=== PATIENT | male | born 1940 | race Caucasian/White ===

== ENCOUNTER → 2016-03-09 | Outpatient (CLI) | payer MEDICARE, OTHER ==
[~2016-03-09] MED LIST: AMLODIPINE10 MG PO; CALCIUM + D 6001 TAB PO; CALCIUM 600 MG-1 TAB PO; CARBAMAZEPINE200 M3 PO; CARBATROL PO; CELLCEPT 250MG250 MG PO; DURAGESIC25 MCG/PAT TD; EPITOL200 MG PO; FINASTERIDE5 MG PO; FLOMAX 0.40.4 MG/CAP PO; FLOMAX0.4 MG PO; FUROSEMIDE40 MG PO; GABAPENTIN300 MG PO; GABAPENTIN600 MG PO; LASIX40 M1; LEVEMIR FLEXPEN SQ; LEVEMIR100 U/M1 SQ; LEVEMIR100 U/ML SC; LEXAPRO 10MG10 MG PO; LIDOCAINE 4% TOP; LIDODERM 5% PATC1 EA TP; LIORESAL 1010 MG/TAB PO; LOPRESSOR 225 MG/TAB PO; LOPURIN300 MG PO; METOLAZONE2.5 MG PO; MUCINEX 60600 MG/TA1 PO; MYCOPHENOLATE250 MG PO; NORCO 325 MG-7.1 TA1 PO; NORVASC 10MG10 MG PO; NOVOLOG 100U100 U/M1 SC; NOVOLOG FLEX100 U/ML SC; PERCOCET 325 MG1 TA2 PO; PHENERGAN 25 TA25 MG PO; PROAIR RESPICL90 MCG INH; PROTONIX 40MG T40 MG PO; PROTONIX40 MG/Pack PO; RAPAMUNE0.5 MG PO; RAPAMUNE1 MG PO; RAPAMUNE1 MG/ML SC; TEGRETOL200 M1 PO; VITAMIN D1000 IU PO; VITAMIN D32000 UNI1 PO; XYLOCAINE NAS; ZYLOPRIM 300MG300 MG PO; ZYRTEC ALLERGY10 MG PO
== END ==
LOC: LAB 10:20
DX: Z94.4 Liver transplant status (principal)

== ENCOUNTER → 2016-04-10 | Outpatient (CLI) | payer MEDICARE, OTHER | LOC: LAB 09:09 | DX: Z94.4 Liver transplant status (principal); N18.3 Chronic kidney disease, stage 3 (moderate) ==

== ENCOUNTER → 2016-04-24 | Outpatient (CLI) | payer MEDICARE, OTHER | LOC: RAD 09:51 | DX: N18.9 Chronic kidney disease, unspecified (principal); K76.9 Liver disease, unspecified; Z94.4 Liver transplant status ==

== ENCOUNTER → 2016-05-29 | Outpatient (CLI) | payer MEDICARE, OTHER | LOC: LAB 08:59 | DX: Z94.4 Liver transplant status (principal) ==

== ENCOUNTER → 2016-06-19 | Outpatient (CLI) | payer MEDICARE, OTHER ==
[2014-12-15 10:40] VITALS: BP 151/89
== END ==
LOC: LAB 13:03
DX: R31.0 Gross hematuria (principal)

== ENCOUNTER → 2016-06-26 | Outpatient (CLI) | payer MEDICARE, OTHER ==
[2014-12-15 10:40] VITALS: BP 151/89
== END ==
LOC: RAD 08:57
DX: R50.81 Fever presenting with conditions classified elsewhere (principal); R06.02 Shortness of breath

== ENCOUNTER → 2016-08-09 | Outpatient (CLI) | payer MEDICARE, OTHER ==
[2014-12-15 10:40] VITALS: BP 151/89
== END ==
LOC: LAB 09:15
DX: E11.9 Type 2 diabetes mellitus without complications (principal); N18.3 Chronic kidney disease, stage 3 (moderate); Z94.4 Liver transplant status; R80.9 Proteinuria, unspecified

== ENCOUNTER → 2016-09-25 | Outpatient (CLI) | payer MEDICARE, OTHER ==
[2014-12-15 10:40] VITALS: BP 151/89
== END ==
LOC: LAB 08:58
DX: Z94.4 Liver transplant status (principal); E11.9 Type 2 diabetes mellitus without complications; Z79.4 Long term (current) use of insulin

== ENCOUNTER → 2016-11-21 | Outpatient (CLI) | payer MEDICARE, OTHER ==
[2014-12-15 10:40] VITALS: BP 151/89
== END ==
LOC: LAB 08:19
DX: Z94.4 Liver transplant status (principal); E11.9 Type 2 diabetes mellitus without complications; Z79.4 Long term (current) use of insulin

== ENCOUNTER → 2017-02-27 | Outpatient (CLI) | payer MEDICARE, OTHER ==
[2014-12-15 10:40] VITALS: BP 151/89
[2017-02-27 13:19] LABS: HEMATOCRIT 43.6 % (42.0-52.0); HEMOGLOBIN 13.9 g/dL (13.5-18.0); MEAN PLATELET VOLUME 9.4 fl (7.4-10.4); RED BLOOD COUNT 4.69 M/mm3 (4.20-5.60); RED CELL DISTRIBUTION WIDTH 14.6 % (11.5-14.5); WHITE BLOOD COUNT 5.8 K/mm3 (4.8-10.8)
[2017-02-27 13:21] LABS: ALBUMIN 4.1 g/dL (3.5-5.0); BUN/CREATININE RATIO 11.7 (6.0-26.0); CALCIUM 9.4 mg/dL (8.4-10.2); POTASSIUM 4.2 mmol/L (3.6-5.0); TOTAL BILIRUBIN 0.7 mg/dL (0.2-1.3); TOTAL PROTEIN 7.4 g/dL (6.3-8.2)
[2017-02-27 13:33] LABS: URINE COLOR YELLOW
[2017-02-27 13:34] LABS: URINE APPEARANCE CLEAR; URINE BILIRUBIN NEGATIVE (NEGATIVE); URINE BLOOD NEGATIVE (NEGATIVE); URINE KETONE NEGATIVE (NEGATIVE); URINE LEUKOCYTE ESTERASE NEGATIVE (NEGATIVE); URINE NITRATE NEGATIVE (NEGATIVE); URINE PROTEIN(semi-quant) TRACE mg/dL (NEGATIVE); URINE UROBILINOGEN NORMAL (NORMAL); URINE WBC 0-1 /hpf (0-3)
[2017-02-28 15:05] LABS: SIROLIMUS (RAPAMUNE) 3.6 ng/mL (3.0-18.0)
== END ==
LOC: LAB 12:39
DX: R31.0 Gross hematuria (principal); E11.9 Type 2 diabetes mellitus without complications; Z94.4 Liver transplant status; Z88.7 Allergy status to serum and vaccine; Z88.8 Allergy status to other drugs, medicaments and biological substances

== ENCOUNTER → 2017-04-09 | Outpatient (CLI) | payer MEDICARE, OTHER ==
[2014-12-15 10:40] VITALS: BP 151/89
[2017-04-09 08:38] LABS: HEMATOCRIT 45.4 % (42.0-52.0); HEMOGLOBIN 14.3 g/dL (13.5-18.0); MEAN PLATELET VOLUME 9.7 fl (7.4-10.4); RED BLOOD COUNT 4.91 M/mm3 (4.20-5.60); RED CELL DISTRIBUTION WIDTH 14.4 % (11.5-14.5); WHITE BLOOD COUNT 6.6 K/mm3 (4.8-10.8)
[2017-04-09 08:44] LABS: ALBUMIN 4.2 g/dL (3.5-5.0); BUN/CREATININE RATIO 14.2 (6.0-26.0); CALCIUM 9.6 mg/dL (8.4-10.2); POTASSIUM 4.2 mmol/L (3.6-5.0); TOTAL BILIRUBIN 0.4 mg/dL (0.2-1.3); TOTAL PROTEIN 7.4 g/dL (6.3-8.2)
[2017-04-09 09:38] LABS: DIRECT BILIRUBIN 0.3 mg/dL (0.0-0.4)
[2017-04-09 10:25] LABS: URINE APPEARANCE CLEAR; URINE BILIRUBIN NEGATIVE (NEGATIVE); URINE BLOOD NEGATIVE (NEGATIVE); URINE COLOR YELLOW; URINE GLUCOSE 50 mg/dL mg/dL (NEGATIVE); URINE KETONE NEGATIVE (NEGATIVE); URINE LEUKOCYTE ESTERASE NEGATIVE (NEGATIVE); URINE MUCUS PRESENT (NOT PRESENT); URINE NITRATE NEGATIVE (NEGATIVE); URINE PROTEIN(semi-quant) 1+ mg/dL (NEGATIVE); URINE UROBILINOGEN NORMAL (NORMAL)
[2017-04-10 13:21] LABS: TACROLIMUS (PROGRAF) <2.0 ng/mL (5.0-15.0)
== END ==
LOC: LAB 08:19
PROVIDERS: Internal Medicine
DX: R80.8 Other proteinuria (principal); E11.8 Type 2 diabetes mellitus with unspecified complications; Z94.4 Liver transplant status; Z88.7 Allergy status to serum and vaccine

== ENCOUNTER → 2017-05-16 | Outpatient (CLI) | payer MEDICARE, OTHER ==
[2014-12-15 10:40] VITALS: BP 151/89
[2017-05-16 09:25] LABS: ALBUMIN 3.8 g/dL (3.5-5.0); BUN/CREATININE RATIO 16.7 (6.0-26.0); CALCIUM 9.3 mg/dL (8.4-10.2); DIRECT BILIRUBIN 0.3 mg/dL (0.0-0.4); HEMATOCRIT 41.7 % (42.0-52.0); HEMOGLOBIN 13.4 g/dL (13.5-18.0); MEAN PLATELET VOLUME 9.3 fl (7.4-10.4); RED BLOOD COUNT 4.55 M/mm3 (4.20-5.60); RED CELL DISTRIBUTION WIDTH 14.1 % (11.5-14.5); TOTAL BILIRUBIN 0.6 mg/dL (0.2-1.3); TOTAL PROTEIN 6.8 g/dL (6.3-8.2); WHITE BLOOD COUNT 5.9 K/mm3 (4.8-10.8)
[2017-05-16 10:09] LABS: URINE APPEARANCE CLEAR; URINE BILIRUBIN NEGATIVE (NEGATIVE); URINE BLOOD NEGATIVE (NEGATIVE); URINE COLOR YELLOW; URINE GLUCOSE NEGATIVE (NEGATIVE); URINE KETONE NEGATIVE (NEGATIVE); URINE LEUKOCYTE ESTERASE NEGATIVE (NEGATIVE); URINE MUCUS PRESENT (NOT PRESENT); URINE NITRATE NEGATIVE (NEGATIVE); URINE PROTEIN(semi-quant) 2+ mg/dL (NEGATIVE); URINE UROBILINOGEN NORMAL (NORMAL)
[2017-05-17 15:33] LABS: TACROLIMUS (PROGRAF) <2.0 ng/mL (5.0-15.0)
[2017-05-17 15:34] LABS: SIROLIMUS (RAPAMUNE) 6.7 ng/mL (3.0-18.0)
== END ==
LOC: LAB 08:52
PROVIDERS: Nurse Practitioner Family
DX: R22.42 Localized swelling, mass and lump, left lower limb (principal); E11.8 Type 2 diabetes mellitus with unspecified complications; R80.8 Other proteinuria; Z88.7 Allergy status to serum and vaccine; Z88.8 Allergy status to other drugs, medicaments and biological substances; Z94.4 Liver transplant status

== ENCOUNTER → 2017-06-12 | Outpatient (CLI) | payer MEDICARE, OTHER ==
[2014-12-15 10:40] VITALS: BP 151/89
[2017-06-12 09:22] LABS: ALBUMIN 4.4 g/dL (3.5-5.0); BUN/CREATININE RATIO 14.9 (6.0-26.0); CALCIUM 9.9 mg/dL (8.4-10.2); DIRECT BILIRUBIN 0.3 mg/dL (0.0-0.4); POTASSIUM 4.1 mmol/L (3.6-5.0); TOTAL BILIRUBIN 0.7 mg/dL (0.2-1.3); TOTAL PROTEIN 8.1 g/dL (6.3-8.2)
[2017-06-12 09:37] LABS: URINE APPEARANCE CLEAR; URINE BILIRUBIN NEGATIVE (NEGATIVE); URINE BLOOD NEGATIVE (NEGATIVE); URINE COLOR YELLOW; URINE GLUCOSE 50 mg/dL mg/dL (NEGATIVE); URINE KETONE NEGATIVE (NEGATIVE); URINE LEUKOCYTE ESTERASE NEGATIVE (NEGATIVE); URINE MUCUS PRESENT (NOT PRESENT); URINE NITRATE NEGATIVE (NEGATIVE); URINE PROTEIN(semi-quant) 2+ mg/dL (NEGATIVE); URINE UROBILINOGEN NORMAL (NORMAL)
[2017-06-12 09:38] LABS: HEMATOCRIT 46.8 % (42.0-52.0); HEMOGLOBIN 14.8 g/dL (13.5-18.0); MEAN PLATELET VOLUME 9.2 fl (7.4-10.4); RED BLOOD COUNT 5.1 M/mm3 (4.20-5.60); RED CELL DISTRIBUTION WIDTH 14.2 % (11.5-14.5); WHITE BLOOD COUNT 5.6 K/mm3 (4.8-10.8)
[2017-06-12 23:53] LABS: MICROALBUMIN RANDOM 33.9 mg/dL (0.0-1.7)
[2017-06-13 13:49] LABS: SIROLIMUS (RAPAMUNE) 5.2 ng/mL (3.0-18.0); TACROLIMUS (PROGRAF) <2.0 ng/mL (5.0-15.0)
== END ==
LOC: LAB 08:50
PROVIDERS: Nurse Practitioner Family
DX: Z94.4 Liver transplant status (principal); E11.8 Type 2 diabetes mellitus with unspecified complications; R80.8 Other proteinuria; Z79.4 Long term (current) use of insulin

== ENCOUNTER → 2017-06-18 | Outpatient (CLI) | payer MEDICARE, OTHER ==
[2014-12-15 10:40] VITALS: BP 151/89
[2017-06-18 14:13] LABS: BUN/CREATININE RATIO 15.7 (6.0-26.0); CALCIUM 9.2 mg/dL (8.4-10.2); POTASSIUM 4.3 mmol/L (3.6-5.0)
== END ==
LOC: LAB 12:54
PROVIDERS: Internal Medicine
DX: N18.3 Chronic kidney disease, stage 3 (moderate) (principal)

== ENCOUNTER → 2017-07-09 | Outpatient (CLI) | payer MEDICARE, OTHER ==
[2014-12-15 10:40] VITALS: BP 151/89
[2017-07-09 09:35] LABS: HEMOGLOBIN 14.2 g/dL (13.5-18.0); MEAN PLATELET VOLUME 9.2 fl (7.4-10.4); RED BLOOD COUNT 4.93 M/mm3 (4.20-5.60); RED CELL DISTRIBUTION WIDTH 13.9 % (11.5-14.5); WHITE BLOOD COUNT 5.8 K/mm3 (4.8-10.8)
[2017-07-09 09:36] LABS: URINE APPEARANCE CLEAR; URINE BILIRUBIN NEGATIVE (NEGATIVE); URINE BLOOD NEGATIVE (NEGATIVE); URINE COLOR YELLOW; URINE GLUCOSE NEGATIVE (NEGATIVE); URINE KETONE NEGATIVE (NEGATIVE); URINE LEUKOCYTE ESTERASE NEGATIVE (NEGATIVE); URINE MUCUS PRESENT (NOT PRESENT); URINE NITRATE NEGATIVE (NEGATIVE); URINE PROTEIN(semi-quant) 2+ mg/dL (NEGATIVE); URINE UROBILINOGEN NORMAL (NORMAL)
[2017-07-09 09:50] LABS: ALBUMIN 4.3 g/dL (3.5-5.0); BUN/CREATININE RATIO 15.1 (6.0-26.0); CALCIUM 9.7 mg/dL (8.4-10.2); DIRECT BILIRUBIN 0.3 mg/dL (0.0-0.4); POTASSIUM 4.3 mmol/L (3.6-5.0); TOTAL BILIRUBIN 0.7 mg/dL (0.2-1.3); TOTAL PROTEIN 7.9 g/dL (6.3-8.2)
[2017-07-09 22:29] LABS: MICROALBUMIN RANDOM 46.8 mg/dL (0.0-1.7)
[2017-07-10 13:43] LABS: SIROLIMUS (RAPAMUNE) 4.3 ng/mL (3.0-18.0); TACROLIMUS (PROGRAF) <2.0 ng/mL (5.0-15.0)
== END ==
LOC: LAB 09:10
PROVIDERS: Nurse Practitioner Family
DX: R80.8 Other proteinuria (principal); E11.8 Type 2 diabetes mellitus with unspecified complications; R31.0 Gross hematuria; Z94.4 Liver transplant status

== ENCOUNTER → 2017-08-07 | Outpatient (CLI) | payer MEDICARE, OTHER ==
[2014-12-15 10:40] VITALS: BP 151/89
[2017-08-07 09:29] LABS: HEMATOCRIT 44.2 % (42.0-52.0); HEMOGLOBIN 14.2 g/dL (13.5-18.0); MEAN PLATELET VOLUME 9.5 fl (7.4-10.4); RED BLOOD COUNT 4.9 M/mm3 (4.20-5.60); RED CELL DISTRIBUTION WIDTH 14.9 % (11.5-14.5); WHITE BLOOD COUNT 6.6 K/mm3 (4.8-10.8)
[2017-08-07 09:42] LABS: ALBUMIN 4.2 g/dL (3.5-5.0); BUN/CREATININE RATIO 15.1 (6.0-26.0); DIRECT BILIRUBIN 0.3 mg/dL (0.0-0.4); TOTAL BILIRUBIN 0.5 mg/dL (0.2-1.3); TOTAL PROTEIN 7.8 g/dL (6.3-8.2)
[2017-08-07 10:23] LABS: URINE APPEARANCE CLEAR; URINE BILIRUBIN NEGATIVE (NEGATIVE); URINE BLOOD NEGATIVE (NEGATIVE); URINE COLOR YELLOW; URINE GLUCOSE NEGATIVE (NEGATIVE); URINE KETONE NEGATIVE (NEGATIVE); URINE LEUKOCYTE ESTERASE NEGATIVE (NEGATIVE); URINE MUCUS PRESENT (NOT PRESENT); URINE NITRATE NEGATIVE (NEGATIVE); URINE PROTEIN(semi-quant) 1+ mg/dL (NEGATIVE); URINE UROBILINOGEN NORMAL (NORMAL)
[2017-08-08 13:05] LABS: TACROLIMUS (PROGRAF) <2.0 ng/mL (5.0-15.0)
[2017-08-08 14:00] LABS: SIROLIMUS (RAPAMUNE) 5.1 ng/mL (3.0-18.0)
[2017-08-09 02:43] LABS: MICROALBUMIN RANDOM 23.4 mg/dL (0.0-1.7)
== END ==
LOC: LAB 09:06
PROVIDERS: Internal Medicine
DX: E11.8 Type 2 diabetes mellitus with unspecified complications (principal); R80.8 Other proteinuria; Z94.4 Liver transplant status

== ENCOUNTER → 2017-10-29 | Outpatient (CLI) | payer MEDICARE, OTHER ==
[2014-12-15 10:40] VITALS: BP 151/89
[2017-10-29 09:37] LABS: HEMATOCRIT 44.8 % (42.0-52.0); HEMOGLOBIN 14.4 g/dL (13.5-18.0)
[2017-10-29 09:46] LABS: ALBUMIN 4.3 g/dL (3.5-5.0); CALCIUM 9.7 mg/dL (8.4-10.2); DIRECT BILIRUBIN 0.3 mg/dL (0.0-0.4); POTASSIUM 3.8 mmol/L (3.6-5.0); TOTAL BILIRUBIN 0.6 mg/dL (0.2-1.3); TOTAL PROTEIN 7.6 g/dL (6.3-8.2)
[2017-10-29 09:53] LABS: URINE APPEARANCE CLEAR; URINE BILIRUBIN NEGATIVE (NEGATIVE); URINE BLOOD NEGATIVE (NEGATIVE); URINE COLOR YELLOW; URINE GLUCOSE NEGATIVE (NEGATIVE); URINE KETONE NEGATIVE (NEGATIVE); URINE LEUKOCYTE ESTERASE NEGATIVE (NEGATIVE); URINE MUCUS PRESENT (NOT PRESENT); URINE NITRATE NEGATIVE (NEGATIVE); URINE PROTEIN(semi-quant) 1+ mg/dL (NEGATIVE); URINE UROBILINOGEN NORMAL (NORMAL); URINE WBC 0-1 /hpf (0-3)
[2017-10-29 23:56] LABS: MICROALBUMIN RANDOM 23.2 mg/dL (0.0-1.7)
[2017-10-30 11:02] LABS: TACROLIMUS (PROGRAF) <2.0 ng/mL (5.0-15.0)
== END ==
LOC: LAB 09:07
DX: R80.8 Other proteinuria (principal); E11.8 Type 2 diabetes mellitus with unspecified complications; Z94.4 Liver transplant status

== ENCOUNTER → 2017-12-03 | Outpatient (CLI) | payer MEDICARE, OTHER ==
[2014-12-15 10:40] VITALS: BP 151/89
[2017-12-03 09:49] LABS: ALBUMIN 4.2 g/dL (3.5-5.0); CALCIUM 9.4 mg/dL (8.4-10.2); POTASSIUM 4.1 mmol/L (3.6-5.0); TOTAL BILIRUBIN 0.7 mg/dL (0.2-1.3); TOTAL PROTEIN 7.4 g/dL (6.3-8.2)
[2017-12-03 09:57] LABS: HEMATOCRIT 43.4 % (42.0-52.0); HEMOGLOBIN 13.9 g/dL (13.5-18.0); MEAN PLATELET VOLUME 9.7 fl (7.4-10.4); RED BLOOD COUNT 4.69 M/mm3 (4.20-5.60); RED CELL DISTRIBUTION WIDTH 13.7 % (11.5-14.5); WHITE BLOOD COUNT 8.9 K/mm3 (4.8-10.8)
== END ==
LOC: LAB 09:08
PROVIDERS: Internal Medicine
DX: N18.3 Chronic kidney disease, stage 3 (moderate) (principal); R80.8 Other proteinuria; Z94.4 Liver transplant status

== ENCOUNTER → 2018-03-28 | Outpatient (CLI) | payer MEDICARE, OTHER ==
[2014-12-15 10:40] VITALS: BP 151/89
[2018-03-28 10:42] LABS: HEMATOCRIT 44.7 % (42.0-52.0); HEMOGLOBIN 14.2 g/dL (13.5-18.0); MEAN PLATELET VOLUME 9.6 fl (7.4-10.4); RED BLOOD COUNT 4.88 M/mm3 (4.20-5.60); RED CELL DISTRIBUTION WIDTH 14.4 % (11.5-14.5)
[2018-03-28 11:19] LABS: CALCIUM 9.9 mg/dL (8.4-10.2); POTASSIUM 4.5 mmol/L (3.6-5.0)
== END ==
LOC: LAB 10:11
DX: N18.3 Chronic kidney disease, stage 3 (moderate) (principal); R80.8 Other proteinuria; Z94.4 Liver transplant status

== ENCOUNTER → 2018-05-07 | Outpatient (CLI) | payer MEDICARE, OTHER ==
[2014-12-15 10:40] VITALS: BP 151/89
[2018-05-07 14:11] LABS: HEMATOCRIT 46.2 % (42.0-52.0); HEMOGLOBIN 14.5 g/dL (13.5-18.0); MEAN PLATELET VOLUME 9.9 fl (7.4-10.4); RED BLOOD COUNT 5.05 M/mm3 (4.20-5.60); RED CELL DISTRIBUTION WIDTH 14.3 % (11.5-14.5); WHITE BLOOD COUNT 7.4 K/mm3 (4.8-10.8)
[2018-05-07 14:15] LABS: POTASSIUM 4.3 mmol/L (3.6-5.0)
[2018-05-07 14:49] LABS: ALBUMIN 4.4 g/dL (3.5-5.0); TOTAL BILIRUBIN 0.6 mg/dL (0.2-1.3); TOTAL PROTEIN 7.8 g/dL (6.3-8.2)
== END ==
LOC: LAB 13:32
PROVIDERS: Physician Assistant
DX: N18.3 Chronic kidney disease, stage 3 (moderate) (principal); R80.8 Other proteinuria; Z94.4 Liver transplant status

== ENCOUNTER → 2018-06-05 | Outpatient (CLI) | payer MEDICARE, OTHER ==
[2014-12-15 10:40] VITALS: BP 151/89
[2018-06-05 11:01] LABS: HEMATOCRIT 45.5 % (42.0-52.0); HEMOGLOBIN 14.4 g/dL (13.5-18.0); MEAN PLATELET VOLUME 9.8 fl (7.4-10.4); RED BLOOD COUNT 4.94 M/mm3 (4.20-5.60); RED CELL DISTRIBUTION WIDTH 14.3 % (11.5-14.5); WHITE BLOOD COUNT 6.6 K/mm3 (4.8-10.8)
[2018-06-05 11:10] LABS: ALBUMIN 4.3 g/dL (3.5-5.0); CALCIUM 9.5 mg/dL (8.4-10.2); POTASSIUM 4.7 mmol/L (3.6-5.0); TOTAL BILIRUBIN 0.6 mg/dL (0.2-1.3); TOTAL PROTEIN 7.5 g/dL (6.3-8.2)
== END ==
LOC: LAB 10:33
DX: R80.8 Other proteinuria (principal); N18.3 Chronic kidney disease, stage 3 (moderate); Z94.4 Liver transplant status

== ENCOUNTER → 2018-07-07 | Outpatient (CLI) | payer MEDICARE, OTHER ==
[2014-12-15 10:40] VITALS: BP 151/89
[2018-07-07 07:54] LABS: HEMATOCRIT 45.3 % (42.0-52.0); HEMOGLOBIN 14.2 g/dL (13.5-18.0); MEAN PLATELET VOLUME 9.7 fl (7.4-10.4); RED BLOOD COUNT 4.88 M/mm3 (4.20-5.60); RED CELL DISTRIBUTION WIDTH 14.9 % (11.5-14.5); WHITE BLOOD COUNT 6.7 K/mm3 (4.8-10.8)
[2018-07-07 07:55] LABS: ALBUMIN 4.4 g/dL (3.5-5.0); CALCIUM 9.5 mg/dL (8.4-10.2); POTASSIUM 4.5 mmol/L (3.6-5.0); TOTAL BILIRUBIN 0.5 mg/dL (0.2-1.3); TOTAL PROTEIN 7.4 g/dL (6.3-8.2)
== END ==
LOC: LAB 07:23
PROVIDERS: Internal Medicine
DX: N18.3 Chronic kidney disease, stage 3 (moderate) (principal); Z94.4 Liver transplant status; R80.8 Other proteinuria

== ENCOUNTER → 2018-08-04 | Outpatient (CLI) | payer MEDICARE, OTHER ==
[2014-12-15 10:40] VITALS: BP 151/89
[2018-08-04 09:13] LABS: HEMATOCRIT 43.6 % (42.0-52.0); HEMOGLOBIN 13.6 g/dL (13.5-18.0); MEAN PLATELET VOLUME 9.6 fl (7.4-10.4); RED BLOOD COUNT 4.68 M/mm3 (4.20-5.60); RED CELL DISTRIBUTION WIDTH 14.8 % (11.5-14.5); WHITE BLOOD COUNT 6.9 K/mm3 (4.8-10.8)
[2018-08-04 09:28] LABS: ALBUMIN 3.9 g/dL (3.4-4.8); CALCIUM 9.8 mg/dL (8.3-10.5); POTASSIUM 4.3 mmol/L (3.5-5.1); TOTAL BILIRUBIN 0.3 mg/dL (0.2-1.2); TOTAL PROTEIN 6.9 g/dL (6.2-8.1)
== END ==
LOC: LAB 08:58
PROVIDERS: Internal Medicine
DX: N18.3 Chronic kidney disease, stage 3 (moderate) (principal); Z94.4 Liver transplant status; R80.8 Other proteinuria

== ENCOUNTER → 2018-09-01 | Outpatient (CLI) | payer MEDICARE, OTHER ==
[2014-12-15 10:40] VITALS: BP 151/89
[2018-09-01 10:11] LABS: EOS # 0.1 (0.04-0.40); EOS % 0.9 % (0.0-4.0); HEMATOCRIT 43.9 % (42.0-52.0); LYMPH# 1.9 (1.50-4.00); MEAN CELL VOLUME 92 fl (78-100); MEAN CORPUSCULAR HEMOGLOBIN 29 pg (27-31); MEAN CORPUSCULAR HGB CONC 32 g/dL (33-37); MONO # 0.5 (0.20-0.80); NEU # 3.9 (1.40-6.50); PLATELET COUNT 339 K/mm3 (130-400); RED CELL DISTRIBUTION WIDTH 14.5 % (11.5-14.5); WHITE BLOOD COUNT 6.3 K/mm3 (4.8-10.8)
[2018-09-01 10:20] LABS: ALBUMIN 4.1 g/dL (3.4-4.8); POTASSIUM 4.5 mmol/L (3.5-5.1)
[2018-09-01 10:21] LABS: CALCIUM 9.8 mg/dL (8.3-10.5)
[2018-09-01 10:23] LABS: TOTAL PROTEIN 7.4 g/dL (6.2-8.1)
[2018-09-01 10:25] LABS: TOTAL BILIRUBIN 0.4 mg/dL (0.2-1.2)
[2018-09-01 11:14] LABS: ERYTHROCYTE SEDIMENTATION RATE 49 mm/hr (0-20)
[2018-09-01 22:19] LABS: TESTOSTERONE 190 ng/dL (221-716)
== END ==
LOC: LAB 09:59
PROVIDERS: Internal Medicine
DX: Z12.5 Encounter for screening for malignant neoplasm of prostate (principal); I10 Essential (primary) hypertension; E11.9 Type 2 diabetes mellitus without complications; E78.5 Hyperlipidemia, unspecified; N52.9 Male erectile dysfunction, unspecified; R20.2 Paresthesia of skin

== ENCOUNTER 2018-09-28 15:24 | Emergency (ER) | payer MEDICARE, OTHER ==
[~2018-09-28] VITALS: Wt 123.1 kg
[2018-09-28 16:11] LABS: HEMATOCRIT 45.1 % (42.0-52.0); HEMOGLOBIN 14.1 g/dL (13.5-18.0); MEAN CELL VOLUME 93 fl (78-100); MEAN CORPUSCULAR HEMOGLOBIN 29 pg (27-31); MEAN CORPUSCULAR HGB CONC 31 g/dL (33-37); MEAN PLATELET VOLUME 10.8 fl (7.4-10.4); PLATELET COUNT 441 K/mm3 (130-400); RED BLOOD COUNT 4.85 M/mm3 (4.20-5.60); RED CELL DISTRIBUTION WIDTH 14.6 % (11.5-14.5); WHITE BLOOD COUNT 11.1 K/mm3 (4.8-10.8)
[2018-09-28 16:24] LABS: ALBUMIN 3.8 g/dL (3.4-4.8)
[2018-09-28 16:25] LABS: POTASSIUM 4.6 mmol/L (3.5-5.1)
[2018-09-28 16:26] LABS: CALCIUM 9.7 mg/dL (8.3-10.5)
[2018-09-28 16:27] LABS: TOTAL PROTEIN 7.8 g/dL (6.2-8.1)
[2018-09-28] MEDS ORDERED: LEVEMIR FLEX100 U/ML SQ (16:28)
[2018-09-28] MEDS ORDERED: PANTOPRAZOLE SO40 MG PO (16:28)
[2018-09-28 16:29] LABS: TOTAL BILIRUBIN 0.3 mg/dL (0.2-1.2)
[2018-09-28] MEDS ORDERED: LEVEMIR100 U/M1 SQ (16:29)
[2018-09-28] MEDS ORDERED: CALCIUM 600 MG-1 TAB PO (16:29)
[2018-09-28] MEDS ORDERED: NOVOLOG 100U100 U/ML SQ (16:29)
[2018-09-28 16:30] LABS: LYMPHOCYTE 13 % (20-51); MONOCYTE 1 % (3-10); NEUTROPHILS 86 % (42-75)
[2018-09-28] MEDS ORDERED: PREDNISONE20 M1 PO (16:43)
[2018-09-28 16:45] LABS: D-DIMER 0.77 mg/L FEU (0.15-0.50)
[2018-09-28 16:46] LABS: TROPONIN-I 10.75 ng/mL (<0.030)
[2018-09-28 17:40] LABS: PARTIAL THROMBOPLASTIN TIME 22.7 SECONDS (21.0-32.0)
[2018-09-28 19:01] VITALS: BP 104/57
== END 2018-09-28 19:23 | disposition short-term general hospital (02) ==
LOC: ED 15:24
PROVIDERS: Family Medicine
DX: I50.9 Heart failure, unspecified (principal); I21.4 Non-ST elevation (NSTEMI) myocardial infarction; E11.22 Type 2 diabetes mellitus with diabetic chronic kidney disease; N18.9 Chronic kidney disease, unspecified; Z94.0 Kidney transplant status; Z90.49 Acquired absence of other specified parts of digestive tract; Z79.4 Long term (current) use of insulin
CPT/HCPCS: J1644; J1940

== ENCOUNTER → 2018-10-13 | Outpatient (CLI) | payer MEDICARE, OTHER ==
[2018-09-28 19:01] VITALS: BP 104/57
[~2018-10-13] MED LIST changes: +LEVEMIR FLEX100 U/ML SQ; +NOVOLOG 100U100 U/ML SQ; +PANTOPRAZOLE SO40 MG PO; +PREDNISONE20 M1 PO
[2018-10-13 09:47] LABS: HEMATOCRIT 40.9 % (42.0-52.0); HEMOGLOBIN 12.5 g/dL (13.5-18.0); MEAN PLATELET VOLUME 9.7 fl (7.4-10.4); RED BLOOD COUNT 4.4 M/mm3 (4.20-5.60); RED CELL DISTRIBUTION WIDTH 14.2 % (11.5-14.5); WHITE BLOOD COUNT 6.9 K/mm3 (4.8-10.8)
[2018-10-13 09:56] LABS: ALBUMIN 3.6 g/dL (3.4-4.8)
[2018-10-13 09:57] LABS: POTASSIUM 4.5 mmol/L (3.5-5.1)
[2018-10-13 09:58] LABS: CALCIUM 9.6 mg/dL (8.3-10.5)
[2018-10-13 09:59] LABS: TOTAL PROTEIN 7.9 g/dL (6.2-8.1)
[2018-10-13 10:01] LABS: TOTAL BILIRUBIN 0.5 mg/dL (0.2-1.2)
== END ==
LOC: LAB 09:32
PROVIDERS: Internal Medicine Nephrology
DX: Z94.4 Liver transplant status (principal)

== ENCOUNTER 2018-10-23 18:22 | Emergency (ER) | payer MEDICARE, OTHER ==
[~2018-10-23] VITALS: Wt 118.1 kg
[2018-10-23] MEDS ORDERED: LEXAPRO 10MG10 MG PO (18:37)
[2018-10-23] MEDS ORDERED: FUROSEMIDE40 MG (18:38)
[2018-10-23] MEDS ORDERED: ROSUVASTATIN CA40 MG PO (18:41)
[2018-10-23] MEDS ORDERED: METOPROLOL SUCC50 M1 PO (18:42)
[2018-10-23] MEDS ORDERED: ASPIR LOW81 MG PO (18:42)
[2018-10-23] MEDS ORDERED: CLOPIDOGREL75 M2 PO (18:42)
[2018-10-23] MEDS ORDERED: ISOSORBIDE30 MG PO (18:42)
[2018-10-23 18:44] LABS: EOS # 0.2 (0.04-0.40); EOS % 2.3 % (0.0-4.0); HEMATOCRIT 41.4 % (42.0-52.0); HEMOGLOBIN 12.8 g/dL (13.5-18.0); MEAN CELL VOLUME 93 fl (78-100); MEAN CORPUSCULAR HEMOGLOBIN 29 pg (27-31); MEAN CORPUSCULAR HGB CONC 31 g/dL (33-37); MEAN PLATELET VOLUME 9.2 fl (7.4-10.4); MONO # 0.5 (0.20-0.80); NEU # 4.7 (1.40-6.50); RED BLOOD COUNT 4.47 M/mm3 (4.20-5.60); RED CELL DISTRIBUTION WIDTH 14.1 % (11.5-14.5); WHITE BLOOD COUNT 6.4 K/mm3 (4.8-10.8)
[2018-10-23 18:46] LABS: PLATELET COUNT 518 K/mm3 (130-400)
[2018-10-23 18:57] LABS: POTASSIUM 4.5 mmol/L (3.5-5.1)
[2018-10-23 18:58] LABS: CALCIUM 9.8 mg/dL (8.3-10.5)
[2018-10-23 18:59] LABS: TOTAL PROTEIN 7.9 g/dL (6.2-8.1)
[2018-10-23 19:01] LABS: TOTAL BILIRUBIN 0.4 mg/dL (0.2-1.2)
[2018-10-23 22:41] LABS: URINE APPEARANCE HAZY; URINE BILIRUBIN NEGATIVE (NEGATIVE); URINE BLOOD NEGATIVE (NEGATIVE); URINE COLOR YELLOW; URINE GLUCOSE NEGATIVE (NEGATIVE); URINE KETONE NEGATIVE (NEGATIVE); URINE LEUKOCYTE ESTERASE NEGATIVE (NEGATIVE); URINE NITRATE NEGATIVE (NEGATIVE); URINE PROTEIN(semi-quant) 2+ mg/dL (NEGATIVE); URINE UROBILINOGEN NORMAL (NORMAL); URINE WBC 0-1 /hpf (0-3)
[2018-10-23 22:42] LABS: URINE MUCUS PRESENT (NOT PRESENT)
[2018-10-23 23:20] VITALS: BP 129/70
== END 2018-10-23 23:20 | disposition home or self-care (01) ==
LOC: ED 18:22
PROVIDERS: Nurse Practitioner Family
DX: E11.649 Type 2 diabetes mellitus with hypoglycemia without coma (principal); E11.42 Type 2 diabetes mellitus with diabetic polyneuropathy; I25.10 Atherosclerotic heart disease of native coronary artery without angina pectoris; I10 Essential (primary) hypertension; I21.9 Acute myocardial infarction, unspecified; G47.33 Obstructive sleep apnea (adult) (pediatric); G50.0 Trigeminal neuralgia; Z79.4 Long term (current) use of insulin; Z79.82 Long term (current) use of aspirin; Z87.891 Personal history of nicotine dependence; Z94.4 Liver transplant status; Z95.5 Presence of coronary angioplasty implant and graft

== ENCOUNTER → 2018-11-20 | Outpatient (CLI) | payer MEDICARE, OTHER ==
[2018-10-23 23:20] VITALS: BP 129/70
[~2018-11-20] MED LIST changes: +ASPIR LOW81 MG PO; +CLOPIDOGREL75 M2 PO; +FUROSEMIDE40 MG; +ISOSORBIDE30 MG PO; +METOPROLOL SUCC50 M1 PO; +ROSUVASTATIN CA40 MG PO
[2018-11-20 13:37] LABS: HEMOGLOBIN 12.2 g/dL (13.5-18.0); MEAN PLATELET VOLUME 9.9 fl (7.4-10.4); RED BLOOD COUNT 4.28 M/mm3 (4.20-5.60); RED CELL DISTRIBUTION WIDTH 15.2 % (11.5-14.5); WHITE BLOOD COUNT 6.9 K/mm3 (4.8-10.8)
[2018-11-20 14:04] LABS: ALBUMIN 3.9 g/dL (3.4-4.8)
[2018-11-20 14:05] LABS: POTASSIUM 4.2 mmol/L (3.5-5.1)
[2018-11-20 14:06] LABS: CALCIUM 9.3 mg/dL (8.3-10.5)
[2018-11-20 14:07] LABS: TOTAL PROTEIN 6.8 g/dL (6.2-8.1)
[2018-11-20 14:09] LABS: TOTAL BILIRUBIN 0.8 mg/dL (0.2-1.2)
== END ==
LOC: LAB 13:25
PROVIDERS: Internal Medicine Nephrology
DX: E11.22 Type 2 diabetes mellitus with diabetic chronic kidney disease (principal); N18.3 Chronic kidney disease, stage 3 (moderate); N52.9 Male erectile dysfunction, unspecified; R80.8 Other proteinuria; R20.2 Paresthesia of skin; Z94.4 Liver transplant status

== ENCOUNTER → 2018-11-24 | Outpatient (CLI) | payer MEDICARE, OTHER ==
[2018-11-24 23:48] LABS: TESTOSTERONE 136 ng/dL (221-716)
== END ==
LOC: LAB 14:25
PROVIDERS: Internal Medicine
DX: N52.9 Male erectile dysfunction, unspecified (principal); R20.2 Paresthesia of skin

== ENCOUNTER → 2019-01-05 | Outpatient (CLI) | payer MEDICARE, OTHER ==
[2019-01-05 14:17] LABS: HEMOGLOBIN 12.9 g/dL (13.5-18.0); MEAN PLATELET VOLUME 10.4 fl (7.4-10.4); RED BLOOD COUNT 4.44 M/mm3 (4.20-5.60); RED CELL DISTRIBUTION WIDTH 15.6 % (11.5-14.5); WHITE BLOOD COUNT 6.4 K/mm3 (4.8-10.8)
[2019-01-05 14:23] LABS: ALBUMIN 4.2 g/dL (3.4-4.8)
[2019-01-05 14:24] LABS: POTASSIUM 5.5 mmol/L (3.5-5.1)
[2019-01-05 14:25] LABS: CALCIUM 9.6 mg/dL (8.3-10.5)
[2019-01-05 14:26] LABS: TOTAL PROTEIN 7.1 g/dL (6.2-8.1)
[2019-01-05 14:28] LABS: TOTAL BILIRUBIN 0.8 mg/dL (0.2-1.2)
== END ==
LOC: LAB 13:58
PROVIDERS: Internal Medicine
DX: I12.9 Hypertensive chronic kidney disease with stage 1 through stage 4 chronic kidney disease, or unspecified chronic kidney disease (principal); N18.3 Chronic kidney disease, stage 3 (moderate); Z94.4 Liver transplant status

== ENCOUNTER → 2019-01-21 | Outpatient (CLI) | payer MEDICARE, OTHER ==
[2019-01-21 14:25] LABS: HEMATOCRIT 41.1 % (42.0-52.0); HEMOGLOBIN 12.6 g/dL (13.5-18.0); MEAN PLATELET VOLUME 9.5 fl (7.4-10.4); RED BLOOD COUNT 4.35 M/mm3 (4.20-5.60); RED CELL DISTRIBUTION WIDTH 15.8 % (11.5-14.5); WHITE BLOOD COUNT 6.5 K/mm3 (4.8-10.8)
[2019-01-21 14:30] LABS: ALBUMIN 4.2 g/dL (3.4-4.8)
[2019-01-21 14:31] LABS: POTASSIUM 4.6 mmol/L (3.5-5.1)
[2019-01-21 14:32] LABS: CALCIUM 9.1 mg/dL (8.3-10.5)
[2019-01-21 14:33] LABS: TOTAL PROTEIN 7.2 g/dL (6.2-8.1)
[2019-01-21 14:35] LABS: TOTAL BILIRUBIN 0.6 mg/dL (0.2-1.2)
== END ==
LOC: LAB 14:11
PROVIDERS: Internal Medicine Nephrology
DX: I15.8 Other secondary hypertension (principal); N18.3 Chronic kidney disease, stage 3 (moderate); Z94.4 Liver transplant status

== ENCOUNTER → 2019-02-02 | Outpatient (CLI) | payer MEDICARE, OTHER ==
[2019-02-02 14:40] LABS: HEMATOCRIT 44.4 % (42.0-52.0); HEMOGLOBIN 13.9 g/dL (13.5-18.0); MEAN PLATELET VOLUME 9.5 fl (7.4-10.4); RED BLOOD COUNT 4.78 M/mm3 (4.20-5.60); RED CELL DISTRIBUTION WIDTH 14.8 % (11.5-14.5); WHITE BLOOD COUNT 6.8 K/mm3 (4.8-10.8)
[2019-02-02 15:05] LABS: ALBUMIN 4.2 g/dL (3.4-4.8)
[2019-02-02 15:06] LABS: POTASSIUM 4.8 mmol/L (3.5-5.1)
[2019-02-02 15:07] LABS: CALCIUM 9.7 mg/dL (8.3-10.5)
[2019-02-02 15:08] LABS: TOTAL PROTEIN 7.3 g/dL (6.2-8.1)
[2019-02-02 15:10] LABS: TOTAL BILIRUBIN 0.9 mg/dL (0.2-1.2)
== END ==
LOC: LAB 14:26
DX: Z48.23 Encounter for aftercare following liver transplant (principal); Z94.4 Liver transplant status

== ENCOUNTER → 2019-02-25 | Outpatient (RCR) | payer MEDICARE, OTHER | END | disposition home or self-care (01) | LOC: CARDREHAB | DX: Z48.812 Encounter for surgical aftercare following surgery on the circulatory system (principal); Z95.5 Presence of coronary angioplasty implant and graft; I25.2 Old myocardial infarction; E11.22 Type 2 diabetes mellitus with diabetic chronic kidney disease; N18.3 Chronic kidney disease, stage 3 (moderate); Z94.4 Liver transplant status; Z87.891 Personal history of nicotine dependence ==

== ENCOUNTER → 2019-03-18 | Outpatient (CLI) | payer MEDICARE, OTHER ==
[2019-03-18 13:54] LABS: HEMATOCRIT 44.5 % (42.0-52.0); HEMOGLOBIN 13.8 g/dL (13.5-18.0); MEAN PLATELET VOLUME 9.1 fl (7.4-10.4); RED BLOOD COUNT 4.9 M/mm3 (4.20-5.60); RED CELL DISTRIBUTION WIDTH 14.6 % (11.5-14.5); WHITE BLOOD COUNT 6.1 K/mm3 (4.8-10.8)
[2019-03-18 14:01] LABS: POTASSIUM 5.2 mmol/L (3.5-5.1)
[2019-03-18 14:02] LABS: CALCIUM 9.5 mg/dL (8.3-10.5)
[2019-03-18 14:04] LABS: TOTAL PROTEIN 6.9 g/dL (6.2-8.1)
[2019-03-18 14:05] LABS: TOTAL BILIRUBIN 0.5 mg/dL (0.2-1.2)
[2019-03-19 14:27] LABS: SIROLIMUS (RAPAMUNE) 4.3 ng/mL (3.0-18.0)
== END ==
LOC: LAB 13:38
PROVIDERS: Internal Medicine
DX: E11.9 Type 2 diabetes mellitus without complications (principal); E78.5 Hyperlipidemia, unspecified; N52.9 Male erectile dysfunction, unspecified; R20.2 Paresthesia of skin; Z94.4 Liver transplant status

== ENCOUNTER → 2019-04-01 | Outpatient (CLI) | payer MEDICARE, OTHER ==
[2019-04-01 10:17] LABS: HEMATOCRIT 44.9 % (42.0-52.0); HEMOGLOBIN 14.2 g/dL (13.5-18.0); MEAN PLATELET VOLUME 9.7 fl (7.4-10.4); RED BLOOD COUNT 4.94 M/mm3 (4.20-5.60); RED CELL DISTRIBUTION WIDTH 14.7 % (11.5-14.5); WHITE BLOOD COUNT 5.5 K/mm3 (4.8-10.8)
[2019-04-01 10:38] LABS: ALBUMIN 4.2 g/dL (3.4-4.8); POTASSIUM 4.4 mmol/L (3.5-5.1)
[2019-04-01 10:39] LABS: CALCIUM 9.5 mg/dL (8.3-10.5)
[2019-04-01 10:40] LABS: TOTAL PROTEIN 7.1 g/dL (6.2-8.1)
[2019-04-01 10:42] LABS: TOTAL BILIRUBIN 0.7 mg/dL (0.2-1.2)
== END ==
LOC: LAB 10:02
DX: Z94.4 Liver transplant status (principal); I15.1 Hypertension secondary to other renal disorders; N18.3 Chronic kidney disease, stage 3 (moderate)

== ENCOUNTER → 2019-04-13 | Outpatient (CLI) | payer MEDICARE, OTHER ==
[2019-04-13 10:51] LABS: HEMATOCRIT 45.7 % (42.0-52.0); HEMOGLOBIN 14.1 g/dL (13.5-18.0); MEAN PLATELET VOLUME 9.5 fl (7.4-10.4); RED BLOOD COUNT 5.06 M/mm3 (4.20-5.60); RED CELL DISTRIBUTION WIDTH 14.5 % (11.5-14.5)
[2019-04-13 10:55] LABS: ALBUMIN 4.1 g/dL (3.4-4.8)
[2019-04-13 10:57] LABS: CALCIUM 8.9 mg/dL (8.3-10.5)
[2019-04-13 10:58] LABS: TOTAL PROTEIN 7.1 g/dL (6.2-8.1)
[2019-04-13 11:00] LABS: TOTAL BILIRUBIN 0.7 mg/dL (0.2-1.2)
== END ==
LOC: LAB 10:33
PROVIDERS: Internal Medicine Nephrology
DX: Z48.23 Encounter for aftercare following liver transplant (principal); Z94.4 Liver transplant status

== ENCOUNTER → 2019-06-08 | Outpatient (CLI) | payer MEDICARE, OTHER ==
[2019-06-08 09:21] LABS: HEMATOCRIT 47.1 % (42.0-52.0); HEMOGLOBIN 14.6 g/dL (13.5-18.0); MEAN PLATELET VOLUME 9.8 fl (7.4-10.4); RED BLOOD COUNT 5.21 M/mm3 (4.20-5.60); RED CELL DISTRIBUTION WIDTH 15.4 % (11.5-14.5); WHITE BLOOD COUNT 7.8 K/mm3 (4.8-10.8)
[2019-06-08 09:26] LABS: ALBUMIN 4.1 g/dL (3.4-4.8)
[2019-06-08 09:27] LABS: POTASSIUM 4.2 mmol/L (3.5-5.1)
[2019-06-08 09:31] LABS: TOTAL BILIRUBIN 0.9 mg/dL (0.2-1.2)
== END ==
LOC: LAB 09:09
PROVIDERS: Internal Medicine
DX: Z48.23 Encounter for aftercare following liver transplant (principal); Z94.4 Liver transplant status

== ENCOUNTER → 2019-07-24 | Outpatient (CLI) | payer MEDICARE, OTHER ==
[2019-07-24 09:52] LABS: POTASSIUM 4.1 mmol/L (3.5-5.1)
[2019-07-24 09:53] LABS: CALCIUM 8.9 mg/dL (8.3-10.5)
== END ==
LOC: LAB 09:08
PROVIDERS: Internal Medicine
DX: N18.3 Chronic kidney disease, stage 3 (moderate) (principal); Z94.4 Liver transplant status

== ENCOUNTER → 2019-07-28 | Outpatient (CLI) | payer MEDICARE, OTHER | LOC: RAD 09:21 | DX: G52.9 Cranial nerve disorder, unspecified (principal); H53.2 Diplopia ==

== ENCOUNTER → 2019-08-19 | Outpatient (CLI) | payer MEDICARE, OTHER ==
[2019-08-19 10:32] LABS: ALBUMIN 4.4 g/dL (3.4-4.8); EOS # 0.1 (0.04-0.40); EOS % 2.2 % (0.0-4.0); HEMATOCRIT 49.4 % (42.0-52.0); HEMOGLOBIN 15.4 g/dL (13.5-18.0); LYMPH# 1.8 (1.50-4.00); MEAN CELL VOLUME 91 fl (78-100); MEAN CORPUSCULAR HEMOGLOBIN 28 pg (27-31); MEAN CORPUSCULAR HGB CONC 31 g/dL (33-37); MEAN PLATELET VOLUME 9.3 fl (7.4-10.4); MONO # 0.5 (0.20-0.80); NEU # 3.8 (1.40-6.50); PLATELET COUNT 344 K/mm3 (130-400); POTASSIUM 4.7 mmol/L (3.5-5.1); RED BLOOD COUNT 5.46 M/mm3 (4.20-5.60); RED CELL DISTRIBUTION WIDTH 15.1 % (11.5-14.5); WHITE BLOOD COUNT 6.4 K/mm3 (4.8-10.8)
[2019-08-19 10:34] LABS: CALCIUM 9.6 mg/dL (8.3-10.5)
[2019-08-19 10:35] LABS: TOTAL PROTEIN 7.5 g/dL (6.2-8.1)
[2019-08-19 10:37] LABS: TOTAL BILIRUBIN 0.9 mg/dL (0.2-1.2)
[2019-08-19 10:43] LABS: MAGNESIUM 2.02 mg/dL (1.60-2.60)
[2019-08-19 11:35] LABS: ERYTHROCYTE SEDIMENTATION RATE 17 mm/hr (0-20)
== END ==
LOC: LAB 09:59
PROVIDERS: Internal Medicine
DX: I10 Essential (primary) hypertension (principal); E11.9 Type 2 diabetes mellitus without complications; E78.5 Hyperlipidemia, unspecified

== ENCOUNTER → 2019-10-15 | Outpatient (CLI) | payer MEDICARE, OTHER ==
[2019-10-15 11:35] LABS: HEMATOCRIT 46.1 % (42.0-52.0); HEMOGLOBIN 14.5 g/dL (13.5-18.0); MEAN PLATELET VOLUME 9.4 fl (7.4-10.4); RED BLOOD COUNT 5.17 M/mm3 (4.20-5.60); WHITE BLOOD COUNT 4.9 K/mm3 (4.8-10.8)
[2019-10-15 11:47] LABS: ALBUMIN 3.9 g/dL (3.4-4.8)
[2019-10-15 11:49] LABS: CALCIUM 8.7 mg/dL (8.3-10.5)
[2019-10-15 11:50] LABS: TOTAL PROTEIN 6.8 g/dL (6.2-8.1)
[2019-10-15 11:52] LABS: TOTAL BILIRUBIN 0.7 mg/dL (0.2-1.2)
== END ==
LOC: LAB 11:16
PROVIDERS: Psychiatry & Neurology Neurology
DX: Z94.4 Liver transplant status (principal)

== ENCOUNTER → 2019-10-19 | Outpatient (CLI) | payer MEDICARE, OTHER | LOC: LAB 09:51 | DX: Z01.89 Encounter for other specified special examinations (principal) ==

== ENCOUNTER → 2019-12-03 | Outpatient (CLI) | payer MEDICARE, OTHER ==
[2019-12-03 13:41] LABS: ALBUMIN 4.1 g/dL (3.4-4.8)
[2019-12-03 13:42] LABS: POTASSIUM 4.5 mmol/L (3.5-5.1)
[2019-12-03 13:43] LABS: CALCIUM 9.3 mg/dL (8.3-10.5)
[2019-12-03 13:44] LABS: TOTAL PROTEIN 6.8 g/dL (6.2-8.1)
[2019-12-03 13:46] LABS: TOTAL BILIRUBIN 0.8 mg/dL (0.2-1.2)
[2019-12-03 13:47] LABS: HEMATOCRIT 46.2 % (42.0-52.0); HEMOGLOBIN 14.4 g/dL (13.5-18.0); MEAN PLATELET VOLUME 9.3 fl (7.4-10.4); RED BLOOD COUNT 5.17 M/mm3 (4.20-5.60); RED CELL DISTRIBUTION WIDTH 15.1 % (11.5-14.5); WHITE BLOOD COUNT 6.4 K/mm3 (4.8-10.8)
== END ==
LOC: LAB 13:23
DX: Z48.23 Encounter for aftercare following liver transplant (principal); Z94.4 Liver transplant status

== ENCOUNTER → 2019-12-14 | Outpatient (CLI) | payer MEDICARE, OTHER ==
[2019-12-14 11:44] LABS: POTASSIUM 4.3 mmol/L (3.5-5.1)
[2019-12-14 11:45] LABS: CALCIUM 9.7 mg/dL (8.3-10.5)
== END ==
LOC: LAB 11:21
PROVIDERS: Internal Medicine Nephrology
DX: N18.30 Chronic kidney disease, stage 3 unspecified (principal)

== ENCOUNTER → 2020-02-09 | Outpatient (CLI) | payer MEDICARE, OTHER ==
[2020-02-09 10:47] LABS: EOS # 0.1 (0.04-0.40); EOS % 1.8 % (0.0-4.0); HEMATOCRIT 49.6 % (42.0-52.0); HEMOGLOBIN 15.1 g/dL (13.5-18.0); LYMPH# 1.8 (1.50-4.00); MEAN CELL VOLUME 92 fl (78-100); MEAN CORPUSCULAR HEMOGLOBIN 28 pg (27-31); MEAN CORPUSCULAR HGB CONC 30 g/dL (33-37); MEAN PLATELET VOLUME 9.4 fl (7.4-10.4); MONO # 0.4 (0.20-0.80); NEU # 4.2 (1.40-6.50); PLATELET COUNT 318 K/mm3 (130-400); RED BLOOD COUNT 5.41 M/mm3 (4.20-5.60); RED CELL DISTRIBUTION WIDTH 15.2 % (11.5-14.5); WHITE BLOOD COUNT 6.5 K/mm3 (4.8-10.8)
[2020-02-09 10:49] LABS: ALBUMIN 4.2 g/dL (3.4-4.8); POTASSIUM 5.3 mmol/L (3.5-5.1)
[2020-02-09 10:50] LABS: CALCIUM 9.6 mg/dL (8.3-10.5)
[2020-02-09 10:52] LABS: TOTAL PROTEIN 6.5 g/dL (6.2-8.1)
[2020-02-09 10:54] LABS: TOTAL BILIRUBIN 0.8 mg/dL (0.2-1.2)
[2020-02-10 14:33] LABS: SIROLIMUS (RAPAMUNE) 6.8 ng/mL (3.0-18.0)
== END ==
LOC: LAB 10:01
PROVIDERS: Internal Medicine
DX: E11.9 Type 2 diabetes mellitus without complications (principal); I25.10 Atherosclerotic heart disease of native coronary artery without angina pectoris; Z12.5 Encounter for screening for malignant neoplasm of prostate; E53.8 Deficiency of other specified B group vitamins; K90.9 Intestinal malabsorption, unspecified; Z94.4 Liver transplant status

== ENCOUNTER → 2020-05-16 | Outpatient (CLI) | payer MEDICARE, OTHER ==
[2020-05-16 12:49] LABS: HEMATOCRIT 44.3 % (42.0-52.0); HEMOGLOBIN 13.4 g/dL (13.5-18.0); MEAN PLATELET VOLUME 9.2 fl (7.4-10.4); RED BLOOD COUNT 4.86 M/mm3 (4.20-5.60); RED CELL DISTRIBUTION WIDTH 15.5 % (11.5-14.5); WHITE BLOOD COUNT 6.1 K/mm3 (4.8-10.8)
[2020-05-16 12:59] LABS: ALBUMIN 4.2 g/dL (3.4-4.8)
[2020-05-16 13:00] LABS: CALCIUM 9.7 mg/dL (8.3-10.5)
[2020-05-16 13:01] LABS: TOTAL PROTEIN 7.1 g/dL (6.2-8.1)
[2020-05-16 13:03] LABS: TOTAL BILIRUBIN 0.7 mg/dL (0.2-1.2)
== END ==
LOC: LAB 12:26
PROVIDERS: Transplant Surgery
DX: Z94.4 Liver transplant status (principal)

== ENCOUNTER → 2020-08-02 | Outpatient (CLI) | payer MEDICARE, OTHER ==
[2020-08-02 10:20] LABS: POTASSIUM 4.5 mmol/L (3.5-5.1)
[2020-08-02 10:21] LABS: CALCIUM 9.9 mg/dL (8.3-10.5)
== END ==
LOC: LAB 09:54
PROVIDERS: Internal Medicine Nephrology
DX: I12.9 Hypertensive chronic kidney disease with stage 1 through stage 4 chronic kidney disease, or unspecified chronic kidney disease (principal); N18.30 Chronic kidney disease, stage 3 unspecified

== ENCOUNTER → 2020-08-18 | Outpatient (CLI) | payer MEDICARE, OTHER ==
[2020-08-18 15:10] LABS: BASO # 0.04 (0.02-0.10); EOS # 0.12 (0.04-0.40); EOS % 1.6 % (0.0-4.0); HEMATOCRIT 45.4 % (42.0-52.0); HEMOGLOBIN 14.3 g/dL (13.5-18.0); MEAN CELL VOLUME 91 fl (78-100); MEAN CORPUSCULAR HEMOGLOBIN 29 pg (27-31); MEAN CORPUSCULAR HGB CONC 32 g/dL (33-37); MEAN PLATELET VOLUME 8.8 fl (7.4-10.4); MONO # 0.51 (0.20-0.80); NEU # 4.66 (1.40-6.50); PLATELET COUNT 356 K/mm3 (130-400); RED BLOOD COUNT 4.98 M/mm3 (4.20-5.60); RED CELL DISTRIBUTION WIDTH 15.4 % (11.5-14.5); WHITE BLOOD COUNT 7.6 K/mm3 (4.8-10.8)
[2020-08-18 15:18] LABS: ALBUMIN 4.3 g/dL (3.4-4.8); POTASSIUM 4.3 mmol/L (3.5-5.1)
[2020-08-18 15:19] LABS: CALCIUM 9.7 mg/dL (8.3-10.5)
[2020-08-18 15:20] LABS: TOTAL PROTEIN 7.5 g/dL (6.2-8.1)
[2020-08-18 15:22] LABS: TOTAL BILIRUBIN 0.7 mg/dL (0.2-1.2)
[2020-08-18 15:27] LABS: MAGNESIUM 1.98 mg/dL (1.60-2.60)
[2020-08-18 23:43] LABS: TESTOSTERONE >1500 ng/dL (221-716)
== END ==
LOC: LAB 14:45
PROVIDERS: Internal Medicine
DX: E11.9 Type 2 diabetes mellitus without complications (principal); I25.10 Atherosclerotic heart disease of native coronary artery without angina pectoris; E53.8 Deficiency of other specified B group vitamins; E23.7 Disorder of pituitary gland, unspecified; M10.9 Gout, unspecified

== ENCOUNTER → 2020-11-09 | Outpatient (CLI) | payer MEDICARE, OTHER ==
[2020-11-09 11:03] LABS: ALBUMIN 4.1 g/dL (3.4-4.8)
[2020-11-09 11:04] LABS: POTASSIUM 4.3 mmol/L (3.5-5.1)
[2020-11-09 11:05] LABS: CALCIUM 10.3 mg/dL (8.3-10.5)
[2020-11-09 11:06] LABS: TOTAL PROTEIN 7.5 g/dL (6.2-8.1)
[2020-11-09 11:08] LABS: TOTAL BILIRUBIN 0.9 mg/dL (0.2-1.2)
[2020-11-09 11:27] LABS: HEMATOCRIT 48.7 % (42.0-52.0); HEMOGLOBIN 15.1 g/dL (13.5-18.0); MEAN PLATELET VOLUME 9.5 fl (7.4-10.4); RED BLOOD COUNT 5.52 M/mm3 (4.20-5.60); RED CELL DISTRIBUTION WIDTH 15.5 % (11.5-14.5); WHITE BLOOD COUNT 7.4 K/mm3 (4.8-10.8)
== END ==
LOC: LAB 10:29
PROVIDERS: Transplant Surgery
DX: Z94.4 Liver transplant status (principal)

== ENCOUNTER → 2021-03-01 | Outpatient (CLI) | payer MEDICARE, OTHER ==
[2021-03-01 12:10] LABS: ALBUMIN 4.1 g/dL (3.4-4.8); POTASSIUM 3.6 mmol/L (3.5-5.1)
[2021-03-01 12:11] LABS: CALCIUM 9.5 mg/dL (8.3-10.5)
[2021-03-01 12:12] LABS: TOTAL PROTEIN 7.1 g/dL (6.2-8.1)
[2021-03-01 12:14] LABS: TOTAL BILIRUBIN 0.9 mg/dL (0.2-1.2)
[2021-03-01 12:32] LABS: HEMATOCRIT 44.9 % (42.0-52.0); HEMOGLOBIN 13.8 g/dL (13.5-18.0); MEAN PLATELET VOLUME 9.4 fl (7.4-10.4); RED BLOOD COUNT 4.86 M/mm3 (4.20-5.60); RED CELL DISTRIBUTION WIDTH 16.5 % (11.5-14.5); WHITE BLOOD COUNT 6.4 K/mm3 (4.8-10.8)
== END ==
LOC: LAB 11:30
PROVIDERS: Transplant Surgery
DX: Z94.4 Liver transplant status (principal)

== ENCOUNTER → 2021-03-20 | Outpatient (CLI) | payer MEDICARE, OTHER | LOC: LAB 15:40 | PROVIDERS: Internal Medicine | DX: E11.9 Type 2 diabetes mellitus without complications (principal); I25.10 Atherosclerotic heart disease of native coronary artery without angina pectoris; Z94.4 Liver transplant status; K90.9 Intestinal malabsorption, unspecified ==

== ENCOUNTER → 2021-04-10 | Outpatient (CLI) | payer MEDICARE, OTHER ==
[2021-04-10 11:00] LABS: ALBUMIN 4.3 g/dL (3.4-4.8); POTASSIUM 4.2 mmol/L (3.5-5.1)
[2021-04-10 11:01] LABS: CALCIUM 9.5 mg/dL (8.3-10.5)
[2021-04-10 11:03] LABS: TOTAL PROTEIN 7.2 g/dL (6.2-8.1)
[2021-04-10 11:10] LABS: HEMATOCRIT 47.8 % (42.0-52.0); HEMOGLOBIN 14.6 g/dL (13.5-18.0); MEAN PLATELET VOLUME 9.3 fl (7.4-10.4); RED BLOOD COUNT 5.07 M/mm3 (4.20-5.60); RED CELL DISTRIBUTION WIDTH 15.5 % (11.5-14.5); WHITE BLOOD COUNT 6.4 K/mm3 (4.8-10.8)
== END ==
LOC: LAB 10:08
PROVIDERS: Internal Medicine Nephrology
DX: N18.4 Chronic kidney disease, stage 4 (severe) (principal); R80.9 Proteinuria, unspecified; N17.8 Other acute kidney failure; Z94.4 Liver transplant status

== ENCOUNTER → 2021-05-12 | Outpatient (CLI) | payer MEDICARE, OTHER ==
[2021-05-12 10:16] LABS: HEMATOCRIT 43.3 % (42.0-52.0); HEMOGLOBIN 13.9 g/dL (13.5-18.0); MEAN PLATELET VOLUME 10.3 fl (7.4-10.4); RED BLOOD COUNT 4.89 M/mm3 (4.20-5.60); RED CELL DISTRIBUTION WIDTH 14.7 % (11.5-14.5); WHITE BLOOD COUNT 4.5 K/mm3 (4.8-10.8)
[2021-05-12 10:27] LABS: ALBUMIN 4.1 g/dL (3.4-4.8); POTASSIUM 3.3 mmol/L (3.5-5.1)
[2021-05-12 10:28] LABS: CALCIUM 9.1 mg/dL (8.3-10.5)
[2021-05-12 10:30] LABS: TOTAL PROTEIN 6.9 g/dL (6.2-8.1)
[2021-05-12 10:31] LABS: TOTAL BILIRUBIN 0.7 mg/dL (0.2-1.2)
== END ==
LOC: LAB 09:26
PROVIDERS: Transplant Surgery
DX: Z94.4 Liver transplant status (principal)

== ENCOUNTER → 2021-06-08 | Outpatient (CLI) | payer MEDICARE, OTHER ==
[2021-06-08 10:33] LABS: HEMATOCRIT 42.4 % (42.0-52.0); HEMOGLOBIN 13.3 g/dL (13.5-18.0); MEAN PLATELET VOLUME 9.3 fl (7.4-10.4); RED BLOOD COUNT 4.66 M/mm3 (4.20-5.60); RED CELL DISTRIBUTION WIDTH 15.8 % (11.5-14.5); WHITE BLOOD COUNT 6.5 K/mm3 (4.8-10.8)
[2021-06-08 10:52] LABS: ALBUMIN 3.6 g/dL (3.4-4.8)
[2021-06-08 10:53] LABS: POTASSIUM 3.9 mmol/L (3.5-5.1)
[2021-06-08 10:54] LABS: CALCIUM 7.3 mg/dL (8.3-10.5)
[2021-06-08 10:55] LABS: TOTAL PROTEIN 6.3 g/dL (6.2-8.1)
[2021-06-08 10:57] LABS: TOTAL BILIRUBIN 0.5 mg/dL (0.2-1.2)
== END ==
LOC: LAB 10:18
PROVIDERS: Transplant Surgery
DX: Z94.4 Liver transplant status (principal)

== ENCOUNTER → 2021-06-09 | Outpatient (CLI) | payer MEDICARE, OTHER ==
[2021-06-14 08:17] LABS: ALBUMIN 4.1 g/dL (3.4-4.8)
[2021-06-14 08:18] LABS: POTASSIUM 4.4 mmol/L (3.5-5.1)
[2021-06-14 08:19] LABS: CALCIUM 9.8 mg/dL (8.3-10.5)
[2021-06-14 08:20] LABS: TOTAL PROTEIN 6.9 g/dL (6.2-8.1)
[2021-06-14 08:22] LABS: TOTAL BILIRUBIN 0.7 mg/dL (0.2-1.2)
== END ==
LOC: LAB 10:39
PROVIDERS: Transplant Surgery
DX: Z94.4 Liver transplant status (principal)

== ENCOUNTER → 2021-06-20 | Outpatient (CLI) | payer MEDICARE, OTHER | LOC: MAMMO 13:35 → RAD 13:35 → MAMMO 13:45 | DX: T50.905A Adverse effect of unspecified drugs, medicaments and biological substances, initial encounter (principal); Z94.4 Liver transplant status ==

== ENCOUNTER → 2021-07-04 | Outpatient (CLI) | payer MEDICARE, OTHER ==
[2021-07-04 12:01] LABS: HEMATOCRIT 39.3 % (42.0-52.0); HEMOGLOBIN 12.2 g/dL (13.5-18.0); MEAN PLATELET VOLUME 9.3 fl (7.4-10.4); RED BLOOD COUNT 4.25 M/mm3 (4.20-5.60); RED CELL DISTRIBUTION WIDTH 15.8 % (11.5-14.5); WHITE BLOOD COUNT 5.3 K/mm3 (4.8-10.8)
[2021-07-04 12:05] LABS: ALBUMIN 4.1 g/dL (3.4-4.8); POTASSIUM 4.8 mmol/L (3.5-5.1)
[2021-07-04 12:07] LABS: TOTAL PROTEIN 7.5 g/dL (6.2-8.1)
[2021-07-04 12:09] LABS: TOTAL BILIRUBIN 0.7 mg/dL (0.2-1.2)
== END ==
LOC: LAB 11:43
DX: Z94.4 Liver transplant status (principal)

== ENCOUNTER → 2021-07-17 | Outpatient (CLI) | payer MEDICARE, OTHER | LOC: LAB 16:02 | DX: E11.9 Type 2 diabetes mellitus without complications (principal); M85.80 Other specified disorders of bone density and structure, unspecified site; E23.7 Disorder of pituitary gland, unspecified; Z94.4 Liver transplant status ==

== ENCOUNTER → 2021-08-01 | Outpatient (CLI) | payer MEDICARE, OTHER ==
[2021-08-01 11:58] LABS: BASO # 0.04 K/mm3 (0.02-0.10); EOS # 0.23 K/mm3 (0.04-0.40); EOS % 3.3 % (0.0-4.0); HEMATOCRIT 35.8 % (42.0-52.0); HEMOGLOBIN 11.1 g/dL (13.5-18.0); LYMPH# 1.87 K/mm3 (1.50-4.00); MEAN CELL VOLUME 96 fl (78-100); MEAN CORPUSCULAR HEMOGLOBIN 30 pg (27-31); MEAN CORPUSCULAR HGB CONC 31 g/dL (33-37); MEAN PLATELET VOLUME 9.2 fl (7.4-10.4); MONO # 0.54 K/mm3 (0.20-0.80); NEU # 4.36 K/mm3 (1.40-6.50); PLATELET COUNT 290 K/mm3 (130-400); POTASSIUM 4.3 mmol/L (3.5-5.1); RED BLOOD COUNT 3.73 M/mm3 (4.20-5.60); RED CELL DISTRIBUTION WIDTH 18.9 % (11.5-14.5); WHITE BLOOD COUNT 7.1 K/mm3 (4.8-10.8)
[2021-08-01 11:59] LABS: CALCIUM 9.3 mg/dL (8.3-10.5)
[2021-08-01 12:00] LABS: TOTAL PROTEIN 6.9 g/dL (6.2-8.1)
[2021-08-01 12:02] LABS: TOTAL BILIRUBIN 0.8 mg/dL (0.2-1.2)
== END ==
LOC: LAB 11:23
PROVIDERS: Student in an Organized Health Care Education/Training Program
DX: Z94.4 Liver transplant status (principal)

== ENCOUNTER → 2021-10-11 | Outpatient (CLI) | payer MEDICARE, OTHER ==
[2021-10-11 09:06] LABS: HEMATOCRIT 43.2 % (42.0-52.0); HEMOGLOBIN 13.1 g/dL (13.5-18.0); RED BLOOD COUNT 4.62 M/mm3 (4.20-5.60); RED CELL DISTRIBUTION WIDTH 14.2 % (11.5-14.5); WHITE BLOOD COUNT 6.8 K/mm3 (4.8-10.8)
[2021-10-11 09:08] LABS: ALBUMIN 4.1 g/dL (3.4-4.8); POTASSIUM 4.8 mmol/L (3.5-5.1)
[2021-10-11 09:09] LABS: CALCIUM 9.1 mg/dL (8.3-10.5)
[2021-10-11 09:11] LABS: TOTAL PROTEIN 7.2 g/dL (6.2-8.1)
[2021-10-11 09:12] LABS: TOTAL BILIRUBIN 0.6 mg/dL (0.2-1.2)
== END ==
LOC: LAB 08:25
PROVIDERS: Student in an Organized Health Care Education/Training Program
DX: Z94.4 Liver transplant status (principal)

== ENCOUNTER 2021-10-25 16:05 | Emergency (ER) | payer MEDICARE, OTHER ==
[~2021-10-25] VITALS: Ht 182.9 cm; Wt 110.9 kg
[2021-10-25 17:10] VITALS: BP 123/77
== END 2021-10-25 17:10 | disposition home or self-care (01) ==
LOC: ED 16:05
DX: S51.811A Laceration without foreign body of right forearm, initial encounter (principal); Z86.79 Personal history of other diseases of the circulatory system; Z79.82 Long term (current) use of aspirin; W22.09XA Striking against other stationary object, initial encounter

== ENCOUNTER → 2022-01-16 | Outpatient (CLI) | payer MEDICARE, OTHER ==
[2022-01-16 14:01] LABS: BASO # 0.02 K/mm3 (0.02-0.10); EOS % 1.5 % (0.0-4.0); HEMATOCRIT 40.5 % (42.0-52.0); HEMOGLOBIN 11.8 g/dL (13.5-18.0); LYMPH# 1.68 K/mm3 (1.50-4.00); MEAN CELL VOLUME 92 fl (78-100); MEAN CORPUSCULAR HEMOGLOBIN 27 pg (27-31); MEAN CORPUSCULAR HGB CONC 29 g/dL (33-37); MONO # 0.47 K/mm3 (0.20-0.80); NEU # 4.47 K/mm3 (1.40-6.50); PLATELET COUNT 328 K/mm3 (130-400); RED BLOOD COUNT 4.42 M/mm3 (4.20-5.60); RED CELL DISTRIBUTION WIDTH 18.1 % (11.5-14.5); WHITE BLOOD COUNT 6.8 K/mm3 (4.8-10.8)
[2022-01-16 14:07] LABS: ALBUMIN 4.1 g/dL (3.4-4.8); POTASSIUM 4.4 mmol/L (3.5-5.1); SODIUM 141 mmol/L (136-145)
[2022-01-16 14:08] LABS: CALCIUM 9.6 mg/dL (8.3-10.5)
[2022-01-16 14:09] LABS: GLUCOSE 167 mg/dL (75-110); TOTAL PROTEIN 7.3 g/dL (6.2-8.1)
[2022-01-16 14:10] LABS: CARBON DIOXIDE 24 mmol/L (23-31)
[2022-01-16 14:11] LABS: TOTAL BILIRUBIN 1.5 mg/dL (0.2-1.2)
[2022-01-16 14:15] LABS: AST-SGOT 11 U/L (5-34)
[2022-01-16 14:19] LABS: ALT/SGPT < 6 U/L (0-55)
[2022-01-16 17:41] LABS: ERYTHROCYTE SEDIMENTATION RATE 52 mm/hr (0-20)
[2022-01-17 13:47] LABS: SIROLIMUS (RAPAMUNE) 2.9 ng/mL (3.0-18.0)
== END ==
LOC: LAB 13:35
PROVIDERS: Internal Medicine
DX: E11.9 Type 2 diabetes mellitus without complications (principal); M85.80 Other specified disorders of bone density and structure, unspecified site; E23.7 Disorder of pituitary gland, unspecified; I10 Essential (primary) hypertension; G83.24 Monoplegia of upper limb affecting left nondominant side; R20.2 Paresthesia of skin; Z94.4 Liver transplant status

== ENCOUNTER → 2022-03-21 | Outpatient (CLI) | payer MEDICARE, OTHER ==
[~2022-03-21] MED LIST changes: +MORGIDOX 1X100100 MG PO
[2022-03-21 11:21] LABS: POTASSIUM 4.7 mmol/L (3.5-5.1)
[2022-03-21 11:22] LABS: CALCIUM 9.8 mg/dL (8.3-10.5)
[2022-03-21 11:24] LABS: TOTAL PROTEIN 7.4 g/dL (6.2-8.1)
[2022-03-21 11:26] LABS: TOTAL BILIRUBIN 1.3 mg/dL (0.2-1.2)
[2022-03-21 11:30] LABS: MAGNESIUM 2.33 mg/dL (1.60-2.60)
== END ==
LOC: LAB 10:43
PROVIDERS: Internal Medicine
DX: E11.9 Type 2 diabetes mellitus without complications (principal); M85.80 Other specified disorders of bone density and structure, unspecified site; E23.7 Disorder of pituitary gland, unspecified; R20.2 Paresthesia of skin; I10 Essential (primary) hypertension; G83.24 Monoplegia of upper limb affecting left nondominant side; Z94.4 Liver transplant status

== ENCOUNTER → 2022-04-17 | Outpatient (CLI) | payer MEDICARE, OTHER ==
[2022-04-17 10:24] LABS: POTASSIUM 4.5 mmol/L (3.5-5.1)
[2022-04-17 10:25] LABS: CALCIUM 9.8 mg/dL (8.3-10.5)
[2022-04-17 10:32] LABS: MAGNESIUM 2.37 mg/dL (1.60-2.60)
== END ==
LOC: LAB 09:29
DX: I50.43 Acute on chronic combined systolic (congestive) and diastolic (congestive) heart failure (principal)

== ENCOUNTER → 2022-04-25 | Outpatient (CLI) | payer MEDICARE, OTHER | LOC: RAD 07:53 | DX: J90 Pleural effusion, not elsewhere classified (principal) ==

== ENCOUNTER → 2022-05-15 | Outpatient (CLI) | payer MEDICARE, OTHER | LOC: RAD 08:51 | DX: J90 Pleural effusion, not elsewhere classified (principal) ==

== ENCOUNTER → 2022-11-07 | Outpatient (CLI) | payer MEDICARE, OTHER ==
[~2022-11-07] MED LIST changes: +BUMEX 1MG TA1 MG/TA1 PO; +METOPROLOL SUCC25 M1 PO; +OXYCONTIN10 M1 PO; +PREDNISONE20 MG PO; +PROAIR HFA0.09 MG/AC IH
[2022-11-07 08:09] LABS: HEMATOCRIT 41.4 % (42.0-52.0); HEMOGLOBIN 12.1 g/dL (13.5-18.0); MEAN PLATELET VOLUME 9.1 fl (7.4-10.4); RED BLOOD COUNT 4.61 M/mm3 (4.20-5.60); RED CELL DISTRIBUTION WIDTH 18.9 % (11.5-14.5); WHITE BLOOD COUNT 8.3 K/mm3 (4.8-10.8)
[2022-11-07 08:16] LABS: TOTAL PROTEIN 7.5 g/dL (6.2-8.1)
[2022-11-07 08:18] LABS: TOTAL BILIRUBIN 0.7 mg/dL (0.2-1.2)
[2022-11-07 08:23] LABS: MAGNESIUM 2.36 mg/dL (1.60-2.60)
== END ==
LOC: LAB 07:52
PROVIDERS: Internal Medicine
DX: N18.30 Chronic kidney disease, stage 3 unspecified (principal); I50.9 Heart failure, unspecified; E88.01 Alpha-1-antitrypsin deficiency; I25.10 Atherosclerotic heart disease of native coronary artery without angina pectoris; Z94.4 Liver transplant status

== ENCOUNTER → 2023-02-04 | Outpatient (CLI) | payer MEDICARE, OTHER ==
[2023-02-04 11:17] LABS: BASO # 0.03 K/mm3 (0.02-0.10); EOS # 0.17 K/mm3 (0.04-0.40); EOS % 2.3 % (0.0-4.0); HEMATOCRIT 47.9 % (42.0-52.0); HEMOGLOBIN 14.2 g/dL (13.5-18.0); LYMPH# 1.67 K/mm3 (1.50-4.00); MEAN CELL VOLUME 95 fl (78-100); MEAN CORPUSCULAR HEMOGLOBIN 28 pg (27-31); MEAN CORPUSCULAR HGB CONC 30 g/dL (33-37); MEAN PLATELET VOLUME 9.2 fl (7.4-10.4); MONO # 0.51 K/mm3 (0.20-0.80); NEU # 5.15 K/mm3 (1.40-6.50); PLATELET COUNT 254 K/mm3 (130-400); RED BLOOD COUNT 5.02 M/mm3 (4.20-5.60); RED CELL DISTRIBUTION WIDTH 16.2 % (11.5-14.5); WHITE BLOOD COUNT 7.5 K/mm3 (4.8-10.8)
[2023-02-04 11:23] LABS: ALBUMIN 4.1 g/dL (3.4-4.8)
[2023-02-04 11:24] LABS: CALCIUM 9.2 mg/dL (8.3-10.5)
[2023-02-04 11:25] LABS: TOTAL PROTEIN 7.4 g/dL (6.2-8.1)
[2023-02-04 11:27] LABS: TOTAL BILIRUBIN 0.8 mg/dL (0.2-1.2)
== END ==
LOC: LAB 11:03
PROVIDERS: Registered Nurse
DX: Z94.4 Liver transplant status (principal); N25.81 Secondary hyperparathyroidism of renal origin; N18.4 Chronic kidney disease, stage 4 (severe); R80.8 Other proteinuria

== ENCOUNTER → 2023-02-12 | Outpatient (CLI) | payer MEDICARE, OTHER ==
[2023-02-12 13:39] LABS: BASO # 0.03 K/mm3 (0.02-0.10); EOS % 1.3 % (0.0-4.0); HEMATOCRIT 49.4 % (42.0-52.0); HEMOGLOBIN 14.7 g/dL (13.5-18.0); LYMPH# 1.86 K/mm3 (1.50-4.00); MEAN CELL VOLUME 96 fl (78-100); MEAN CORPUSCULAR HEMOGLOBIN 29 pg (27-31); MEAN CORPUSCULAR HGB CONC 30 g/dL (33-37); MEAN PLATELET VOLUME 9.5 fl (7.4-10.4); NEU # 5.16 K/mm3 (1.40-6.50); PLATELET COUNT 302 K/mm3 (130-400); RED BLOOD COUNT 5.16 M/mm3 (4.20-5.60); RED CELL DISTRIBUTION WIDTH 16.2 % (11.5-14.5); WHITE BLOOD COUNT 7.6 K/mm3 (4.8-10.8)
[2023-02-12 13:48] LABS: ALBUMIN 4.2 g/dL (3.4-4.8)
[2023-02-12 13:49] LABS: CALCIUM 9.9 mg/dL (8.3-10.5)
[2023-02-12 13:51] LABS: TOTAL PROTEIN 7.5 g/dL (6.2-8.1)
[2023-02-12 13:52] LABS: TOTAL BILIRUBIN 0.9 mg/dL (0.2-1.2)
[2023-02-12 13:57] LABS: MAGNESIUM 2.33 mg/dL (1.60-2.60)
[2023-02-12 14:12] LABS: PH-URINE 5.5 (5.0 - 8.0); URINE APPEARANCE CLEAR; URINE BILIRUBIN NEGATIVE (NEGATIVE); URINE BLOOD TRACE (NEGATIVE); URINE COLOR YELLOW; URINE GLUCOSE NEGATIVE (NEGATIVE); URINE KETONE NEGATIVE (NEGATIVE); URINE LEUKOCYTE ESTERASE NEGATIVE (NEGATIVE); URINE NITRATE NEGATIVE (NEGATIVE); URINE PROTEIN(semi-quant) 2+ (NEGATIVE)
[2023-02-12 14:14] LABS: URINE MUCUS PRESENT (NOT PRESENT)
== END ==
LOC: LAB 13:22
PROVIDERS: Internal Medicine
DX: M10.9 Gout, unspecified (principal); I10 Essential (primary) hypertension; E78.5 Hyperlipidemia, unspecified; E11.9 Type 2 diabetes mellitus without complications; E53.8 Deficiency of other specified B group vitamins; K90.9 Intestinal malabsorption, unspecified

== ENCOUNTER → 2023-05-20 | Outpatient (CLI) | payer MEDICARE, OTHER ==
[2023-05-20 13:08] LABS: HEMATOCRIT 45.2 % (42.0-52.0); HEMOGLOBIN 13.7 g/dL (13.5-18.0); MEAN PLATELET VOLUME 9.7 fl (7.4-10.4); RED BLOOD COUNT 4.79 M/mm3 (4.20-5.60); WHITE BLOOD COUNT 6.9 K/mm3 (4.8-10.8)
[2023-05-20 13:13] LABS: ALBUMIN 4.1 g/dL (3.4-4.8)
[2023-05-20 13:16] LABS: TOTAL PROTEIN 7.5 g/dL (6.2-8.1)
[2023-05-20 13:17] LABS: TOTAL BILIRUBIN 1.4 mg/dL (0.2-1.2)
== END ==
LOC: LAB 12:37
PROVIDERS: Student in an Organized Health Care Education/Training Program
DX: Z94.4 Liver transplant status (principal)

== ENCOUNTER → 2023-08-06 | Outpatient (CLI) | payer MEDICARE, OTHER ==
[2023-09-24 11:44] LABS: CREATININE OTHER SOURCE AMS
[2023-09-24 12:43] LABS: ALBUMIN 4.1 g/dL (3.4-4.8); CALCIUM 9.7 mg/dL (8.3-10.5)
[2023-09-24 12:47] LABS: BASO # 0.03 K/mm3 (0.02-0.10); EOS # 0.14 K/mm3 (0.04-0.40); EOS % 1.7 % (0.0-4.0); HEMATOCRIT 46.4 % (42.0-52.0); HEMOGLOBIN 13.8 g/dL (13.5-18.0); LYMPH# 2.41 K/mm3 (1.50-4.00); MEAN CELL VOLUME 94 fl (78-100); MEAN CORPUSCULAR HEMOGLOBIN 28 pg (27-31); MEAN CORPUSCULAR HGB CONC 30 g/dL (33-37); MEAN PLATELET VOLUME 9.1 fl (7.4-10.4); MONO # 0.48 K/mm3 (0.20-0.80); NEU # 5.31 K/mm3 (1.40-6.50); PLATELET COUNT 289 K/mm3 (130-400); RED BLOOD COUNT 4.93 M/mm3 (4.20-5.60); RED CELL DISTRIBUTION WIDTH 15.7 % (11.5-14.5); WHITE BLOOD COUNT 8.4 K/mm3 (4.8-10.8)
== END ==
LOC: LAB 10:36
PROVIDERS: Internal Medicine Nephrology
DX: N18.4 Chronic kidney disease, stage 4 (severe) (principal); N25.81 Secondary hyperparathyroidism of renal origin

== ENCOUNTER → 2023-08-22 | Outpatient (CLI) | payer MEDICARE, OTHER ==
[2023-08-22 11:54] LABS: ALBUMIN 4.3 g/dL (3.4-4.8)
[2023-08-22 11:55] LABS: CALCIUM 10.2 mg/dL (8.3-10.5)
[2023-08-22 11:56] LABS: TOTAL PROTEIN 7.8 g/dL (6.2-8.1)
[2023-08-22 12:03] LABS: MAGNESIUM 2.11 mg/dL (1.60-2.60)
[2023-08-22 12:32] LABS: BASO # 0.03 K/mm3 (0.02-0.10); EOS # 0.07 K/mm3 (0.04-0.40); EOS % 0.9 % (0.0-4.0); HEMATOCRIT 48.7 % (42.0-52.0); LYMPH# 2.14 K/mm3 (1.50-4.00); MEAN CELL VOLUME 91 fl (78-100); MEAN CORPUSCULAR HEMOGLOBIN 28 pg (27-31); MEAN CORPUSCULAR HGB CONC 31 g/dL (33-37); MEAN PLATELET VOLUME 10.1 fl (7.4-10.4); NEU # 4.96 K/mm3 (1.40-6.50); PLATELET COUNT 278 K/mm3 (130-400); RED BLOOD COUNT 5.34 M/mm3 (4.20-5.60); RED CELL DISTRIBUTION WIDTH 15.6 % (11.5-14.5); WHITE BLOOD COUNT 7.6 K/mm3 (4.8-10.8)
[2023-08-22 13:59] LABS: URINE COLOR YELLOW (YELLOW)
[2023-08-22 14:00] LABS: URINE APPEARANCE SLIGHTLY CLOUDY (CLEAR)
[2023-08-22 14:12] LABS: PH-URINE 5.5 (5.0 - 8.0); URINE GLUCOSE TRACE (NEGATIVE); URINE KETONE NEGATIVE (NEGATIVE); URINE PROTEIN(semi-quant) 2+ (NEGATIVE)
[2023-08-22 14:13] LABS: URINE BILIRUBIN NEGATIVE (NEGATIVE); URINE BLOOD NEGATIVE (NEGATIVE); URINE LEUKOCYTE ESTERASE NEGATIVE (NEGATIVE); URINE MUCUS PRESENT (NOT PRESENT); URINE NITRATE NEGATIVE (NEGATIVE); URINE WBC 0-1 /hpf (0-3)
== END ==
LOC: LAB 10:41
PROVIDERS: Internal Medicine
DX: M10.9 Gout, unspecified (principal); E78.5 Hyperlipidemia, unspecified; I10 Essential (primary) hypertension; E11.9 Type 2 diabetes mellitus without complications; Z94.4 Liver transplant status

== ENCOUNTER → 2023-09-03 | Outpatient (CLI) | payer MEDICARE, OTHER | LOC: RAD 08:25 → MAMMO 09:00 | DX: M85.851 Other specified disorders of bone density and structure, right thigh (principal); M85.852 Other specified disorders of bone density and structure, left thigh ==

== ENCOUNTER → 2023-11-05 | Outpatient (CLI) | payer MEDICARE, OTHER ==
[2023-11-05 09:48] LABS: BASO # 0.02 K/mm3 (0.02-0.10); EOS # 0.12 K/mm3 (0.04-0.40); EOS % 1.8 % (0.0-4.0); HEMATOCRIT 45.5 % (42.0-52.0); LYMPH# 1.52 K/mm3 (1.50-4.00); MEAN CELL VOLUME 94 fl (78-100); MEAN CORPUSCULAR HEMOGLOBIN 29 pg (27-31); MEAN CORPUSCULAR HGB CONC 31 g/dL (33-37); MEAN PLATELET VOLUME 9.3 fl (7.4-10.4); MONO # 0.32 K/mm3 (0.20-0.80); NEU # 4.64 K/mm3 (1.40-6.50); PLATELET COUNT 280 K/mm3 (130-400); RED BLOOD COUNT 4.85 M/mm3 (4.20-5.60); WHITE BLOOD COUNT 6.6 K/mm3 (4.8-10.8)
[2023-11-05 09:54] LABS: ALBUMIN 4.1 g/dL (3.4-4.8)
[2023-11-05 09:55] LABS: CALCIUM 10.2 mg/dL (8.3-10.5)
[2023-11-05 09:57] LABS: TOTAL PROTEIN 7.6 g/dL (6.2-8.1)
[2023-11-05 09:58] LABS: TOTAL BILIRUBIN 0.9 mg/dL (0.2-1.2)
== END ==
LOC: LAB 09:32
PROVIDERS: Internal Medicine Nephrology
DX: N25.81 Secondary hyperparathyroidism of renal origin (principal); N18.4 Chronic kidney disease, stage 4 (severe); N17.8 Other acute kidney failure

== ENCOUNTER → 2023-11-05 | Outpatient (CLI) | payer MEDICARE, OTHER | LOC: LAB 09:29 | DX: R79.89 Other specified abnormal findings of blood chemistry (principal); Z94.4 Liver transplant status ==

== ENCOUNTER → 2023-12-03 | Outpatient (CLI) | payer MEDICARE, OTHER ==
[2023-12-03 10:17] LABS: ALBUMIN 4.1 g/dL (3.4-4.8)
[2023-12-03 10:19] LABS: CALCIUM 9.9 mg/dL (8.3-10.5)
== END ==
LOC: LAB 09:55
PROVIDERS: Internal Medicine Nephrology
DX: N25.81 Secondary hyperparathyroidism of renal origin (principal); N18.4 Chronic kidney disease, stage 4 (severe); N17.8 Other acute kidney failure

== ENCOUNTER → 2024-01-06 | Outpatient (CLI) | payer MEDICARE, OTHER ==
[2024-01-06 08:41] LABS: HEMATOCRIT 45.7 % (42.0-52.0); HEMOGLOBIN 13.8 g/dL (13.5-18.0); MEAN PLATELET VOLUME 9.2 fl (7.4-10.4); RED BLOOD COUNT 4.66 M/mm3 (4.20-5.60); RED CELL DISTRIBUTION WIDTH 16.3 % (11.5-14.5); WHITE BLOOD COUNT 8.2 K/mm3 (4.8-10.8)
[2024-01-06 08:49] LABS: ALBUMIN 4.1 g/dL (3.4-4.8)
[2024-01-06 08:50] LABS: CALCIUM 9.9 mg/dL (8.3-10.5)
[2024-01-06 08:51] LABS: TOTAL PROTEIN 7.3 g/dL (6.2-8.1)
[2024-01-06 08:53] LABS: TOTAL BILIRUBIN 0.9 mg/dL (0.2-1.2)
== END ==
LOC: LAB 08:28
PROVIDERS: Orthopaedic Surgery
DX: Z94.4 Liver transplant status (principal)

== ENCOUNTER → 2024-02-03 | Outpatient (CLI) | payer MEDICARE, OTHER ==
[2024-02-03 08:56] LABS: ALBUMIN 4.6 g/dL (3.4-4.8)
[2024-02-03 08:58] LABS: CALCIUM 10.5 mg/dL (8.3-10.5)
== END ==
LOC: LAB 08:35
PROVIDERS: Internal Medicine Nephrology
DX: N18.4 Chronic kidney disease, stage 4 (severe) (principal); N25.81 Secondary hyperparathyroidism of renal origin; R80.8 Other proteinuria

== ENCOUNTER 2024-03-29 18:08 | Emergency (ER) | payer MEDICARE, OTHER ==
[~2024-03-29] VITALS: Ht 182.9 cm; Wt 109.5 kg
[2024-03-29 19:03] LABS: BASO # 0.02 K/mm3 (0.02-0.10); EOS # 0.07 K/mm3 (0.04-0.40); EOS % 0.8 % (0.0-4.0); HEMATOCRIT 45.2 % (42.0-52.0); HEMOGLOBIN 13.5 g/dL (13.5-18.0); MEAN CELL VOLUME 96 fl (78-100); MEAN CORPUSCULAR HEMOGLOBIN 29 pg (27-31); MEAN CORPUSCULAR HGB CONC 30 g/dL (33-37); MEAN PLATELET VOLUME 9.4 fl (7.4-10.4); MONO # 0.62 K/mm3 (0.20-0.80); NEU # 5.63 K/mm3 (1.40-6.50); PLATELET COUNT 321 K/mm3 (130-400); RED BLOOD COUNT 4.73 M/mm3 (4.20-5.60); RED CELL DISTRIBUTION WIDTH 16.9 % (11.5-14.5); WHITE BLOOD COUNT 8.5 K/mm3 (4.8-10.8)
[2024-03-29 19:07] LABS: ALBUMIN 4.1 g/dL (3.4-4.8)
[2024-03-29 19:09] LABS: CALCIUM 9.6 mg/dL (8.3-10.5)
[2024-03-29 19:10] LABS: TOTAL PROTEIN 7.6 g/dL (6.2-8.1)
[2024-03-29 19:12] LABS: TOTAL BILIRUBIN 1.2 mg/dL (0.2-1.2)
[2024-03-29] MEDS ORDERED: Ondansetron 4 MG/2 ML VIAL IV ONE (19:30)
[2024-03-29] MEDS ORDERED: Mag/Al Hydrox/Simeth Susp 30 ML CUP PO ONE (19:30)
[2024-03-29 19:32] LABS: TROPONIN-I 0.058 ng/mL (0.00-0.033)
[2024-03-30 06:48] LABS: PARTIAL THROMBOPLASTIN TIME 22.6 SECONDS (21.0-32.0); PROTHROMBIN TIME 10.9 SECONDS (9.0-12.0)
[2024-03-30] MEDS ORDERED: Heparin 5,000 UNITS/ML 1 ML VIAL IV PRN (07:00)
[2024-03-30] MEDS ORDERED: Heparin 5,000 UNITS/ML 1 ML VIAL IV ONE (07:00)
[2024-03-30] MEDS ORDERED: Mycophenolate 250 MG CAP PO ONE (10:30)
[2024-03-30] MEDS ORDERED: Allopurinol 300 MG TAB PO ONE (10:30)
[2024-03-30] MEDS ORDERED: Isosorbide Mononitrate ER (24-HR) 30 MG TAB PO ONE (10:30)
[2024-03-30] MEDS ORDERED: Bumetanide 1 MG TAB PO ONE (10:30)
[2024-03-30 11:42] VITALS: BP 107/76
== END 2024-03-30 11:50 | disposition short-term general hospital (02) ==
LOC: ED 18:08
PROVIDERS: Nurse Practitioner
DX: E11.22 Type 2 diabetes mellitus with diabetic chronic kidney disease (principal); I13.0 Hypertensive heart and chronic kidney disease with heart failure and stage 1 through stage 4 chronic kidney disease, or unspecified chronic kidney disease; N18.9 Chronic kidney disease, unspecified; I50.9 Heart failure, unspecified; J90 Pleural effusion, not elsewhere classified; Z95.5 Presence of coronary angioplasty implant and graft; Z94.4 Liver transplant status; Z79.02 Long term (current) use of antithrombotics/antiplatelets; Z79.82 Long term (current) use of aspirin
CPT/HCPCS: J1644; J2405; J7517

== ENCOUNTER → 2024-04-09 | Outpatient (CLI) | payer MEDICARE, OTHER ==
[2024-04-09 10:53] LABS: BASO # 0.01 K/mm3 (0.02-0.10); EOS # 0.02 K/mm3 (0.04-0.40); EOS % 0.3 % (0.0-4.0); HEMATOCRIT 52.1 % (42.0-52.0); HEMOGLOBIN 15.9 g/dL (13.5-18.0); LYMPH# 1.56 K/mm3 (1.50-4.00); MEAN CELL VOLUME 91 fl (78-100); MEAN CORPUSCULAR HEMOGLOBIN 28 pg (27-31); MEAN CORPUSCULAR HGB CONC 31 g/dL (33-37); MEAN PLATELET VOLUME 9.2 fl (7.4-10.4); MONO # 0.33 K/mm3 (0.20-0.80); PLATELET COUNT 351 K/mm3 (130-400); RED BLOOD COUNT 5.74 M/mm3 (4.20-5.60); RED CELL DISTRIBUTION WIDTH 16.4 % (11.5-14.5); WHITE BLOOD COUNT 7.9 K/mm3 (4.8-10.8)
[2024-04-09 11:01] LABS: ALBUMIN 4.6 g/dL (3.4-4.8)
[2024-04-09 11:03] LABS: CALCIUM 10.6 mg/dL (8.3-10.5)
[2024-04-10 00:56] LABS: HEPATITIS B CORE AB TOTAL Positive (Negative); HEPATITIS B SURFACE ANTIBODY <3.3 (()); HEPATITIS B SURFACE ANTIGEN Negative (Negative); HEPATITIS C VIRUS ANTIBODY Nonreactive (Nonreactiv)
[2024-04-10 14:27] LABS: PTH,INTACT 490.6 pg/mL (6.6-88.9)
== END ==
LOC: LAB 10:26
PROVIDERS: Internal Medicine Nephrology
DX: N25.81 Secondary hyperparathyroidism of renal origin (principal); N18.4 Chronic kidney disease, stage 4 (severe); N17.8 Other acute kidney failure

== ENCOUNTER → 2024-04-15 | Outpatient (CLI) | payer MEDICARE, OTHER ==
[2024-04-15 11:34] LABS: HEMATOCRIT 50.4 % (42.0-52.0); HEMOGLOBIN 15.4 g/dL (13.5-18.0); MEAN PLATELET VOLUME 10.2 fl (7.4-10.4); RED BLOOD COUNT 5.57 M/mm3 (4.20-5.60); RED CELL DISTRIBUTION WIDTH 15.8 % (11.5-14.5); WHITE BLOOD COUNT 6.5 K/mm3 (4.8-10.8)
[2024-04-15 11:47] LABS: ALBUMIN 4.5 g/dL (3.4-4.8); CALCIUM 10.3 mg/dL (8.3-10.5)
[2024-04-15 11:48] LABS: TOTAL PROTEIN 8.7 g/dL (6.2-8.1)
[2024-04-15 11:49] LABS: TOTAL BILIRUBIN 1.1 mg/dL (0.2-1.2)
== END ==
LOC: LAB 11:16
PROVIDERS: Student in an Organized Health Care Education/Training Program
DX: N18.4 Chronic kidney disease, stage 4 (severe) (principal); Z94.4 Liver transplant status